=== PATIENT | female | born 1955 | race Caucasian/White ===

== ENCOUNTER 2020-10-29 17:09 | Inpatient (IN) | payer MEDICARE, MEDICAID, SELFPAY ==
[2020-10-29] VITALS (23 sets, daily range): BP systolic 102–154; BP diastolic 46–69; PULSE 65–88; RESP 16–18; TEMP 36–37.1; O2SAT 93–100; BMI 26.2
--- NOTE | ~2020-10-29 | US_ITS ---
EXAMINATION: US venous doppler UE RT DATE: 10/31/2020 17:41 INDICATION: Right arm tenderness, bruising and swelling TECHNIQUE: Grayscale images without and with compression and Doppler images of the right upper extrem ity veins were obtained. COMPARISON: None. FINDINGS: The right internal jugular vein, subclavian vein, axillary vein, brachial vein, basilic vein, cephali c vein, radial vein, and ulnar vein are patent. IMPRESSION: 1. Patent right upper extremity veins. No evidence of venous thrombosis. Reviewed, dictated and finalized at location A.
--- NOTE | ~2020-10-29 | XR_ITS ---
XR chest 2V DATE: 10/29/2020 17:37 INDICATION: Shortness of breath. TECHNIQUE: AP and lateral views COMPARISON: 10/24/2012 PA and lateral chest FINDINGS: Status post sternotomy and coronary bypass graft surgery. Cardiomegaly. Coronary artery calcifications. Aortic calcification and mild unfolding. Minimal blunting of the costophrenic angles consistent with small bilateral pleural effusions. There is pulmonary vascular congestion and redistribution. There is mild infiltrate or atelectasis in the lower lung zones. Diffuse osteopenia. IMPRESSION: Status post sternotomy/CABG Mild congestive changes Mild lateral lower lung infiltrate and/atelectasis Reviewed, dictated and finalized at location A.
--- NOTE | 2020-10-29 17:13 | PM.IMHP ---
H&P: HPI History of Present Illness Date/Time: 10/29/20 17:13 this is a 65-year-old female patient who has end-stage renal disease on dialysis Saturday. The patient stated that she is fairly new to dialysis. She stated that she had 4 treatments at [facility] in [facility] just recently and was just discharged from there on this past Saturday. The patient stated she just got the dialysis graft and right forearm and had occluded they had to get the graft open back up and has massive bruising on her right arm. The patient was supposed to go to dialysis today however she developed shortness of breath and chest pain that started at 8:00 a.m. this morning. The patient was also nauseated but did not vomit. The patient went to [facility] and [place] as that is where she lives and [place]. The patient was scheduled for dialysis today 11:00 a.m. but chose to go to [facility] instead. The patient was asleep when she developed this chest pain. She lives at [facility]. The patient also stated that she had been constipated and now her bowels opened up as she says and is been having diarrhea. She had chest pain for approximately 2 hours a did not radiate down her arm. She denied any fever chills or any cough. A chest x-ray was taken at [facility] which was suggestive of pneumonia. His head right basilar pneumonia. Patient was treated with antibiotics there at the hospital. Patient had a mildly elevated white count over 12 and pneumonia was suspected. Her potassium was within normal limits. The house piping inspector here called the choir singer Dr. Cruz who agreed to consult on the patient if she was transferred here from [facility] in [place]. [facility] attempted to transfer the patient back to [place] however they stated that no beds were available were there at this point. Patient no longer has any chest pain. Her EKG was read as a junctional rhythm with frequent PVCs. Minimal ST depression. She had mildly elevated troponin. She was given IV Lasix, cefepime, and morphine at [facility] in [place]. The patient was a direct admit from [facility] she stated that she has not had any of her medications as of yet today. The patient is chronically on oxygen at 2-3 L per nasal cannula. The patient is being admitted to observation services on the date of service of 10/29/2020. Chief Complaint: Chest pain with elevated troponin and pulmonary edema with end-stage renal disease Review of Systems Review of Systems: All systems reviewed & are unremarkable except as noted in HPI and below Constitutional: Constitutional: Reports as per HPI and Reports no additional constitutional complaints Eyes: Eyes: Reports as per HPI and Reports no additional eye complaints ENT: Reports system reviewed and no additional complaints, except as documented and Reports Normal hearing present Cardiovascular: Cardiovascular: Reports no additional cardiovascular complaints Respiratory: Respiratory: Reports no additional respiratory complaints and Reports no additional respiratory complaints Gastrointestinal: Gastrointestinal: Reports as per HPI and Reports no additional gastrointestinal complaints Musculoskeletal: Musculoskeletal: Reports no additional musculoskeletal complaints Integumentary/Breasts: Skin/Breast: Reports system reviewed and no additional complaints, except as docu and Reports as per HPI Neurologic: Reports system reviewed and no additional complaints, except as documented, Reports as per HPI and Reports Normal hearing present Psychiatric: Psychiatric: Reports no additional psychiatric complaints and Reports as per HPI Endocrine: Endocrine: Reports no additional endocrine complaints Hematologic/Lymphatic: Hematologic/Lymphatic: Reports no additional hematologic/lymphatic complaints Allergic/Immunologic: Allergic/Immunologic: Reports no additional sathish
--- NOTE | 2020-10-29 17:18 | ADMGEN ---
This patient, Irene Arellano, was admitted to IMU Room 203-01 at 1600. Patient/family oriented to hospital policies and general routines including ID bracelet, bed and alarms, visiting hours, pain management, procedures, bathroom and other care routines, personal items, smoking policy, room service/diet, and visiting hours. Information on how to activate the Rapid Response Team has been discussed. Patient/Family are encouraged to report perceived risks to care and to ask questions if they do not understand what they are told or what they should do.
[2020-10-29] MEDS: NICOTINE (*PBKC) 7 MG PATCH 1 PATCH TRANSDERM (18:29)
[2020-10-29] MEDS: CEFEPIME 1 GM in DEXTROSE 5% IN WATER 50 ML IVPB (18:30)
[2020-10-29 18:34] LABS: Prothrombin Time 23.5 Seconds (11.1-14.7)
[2020-10-29 18:36] LABS: Phosphorus 4.4 mg/dL (2.5-4.5)
[2020-10-29 19:03] LABS: Estimated CRCL calculation 17 ml/min; Estimated Glomerular Filt Rate 16
[2020-10-29 19:34] LABS: Troponin I 0.086 ng/mL (0.000-0.034)
[2020-10-29 19:42] LABS: Alanine Aminotransferase 22 U/L (4-35); Albumin Level 3.2 g/dL (3.5-5.1); Alkaline Phosphatase 117 U/L (38-126); Anion Gap 3 mmol/L (8-16); Aspartate Amino Transferase 38 U/L (14-36); Bilirubin,Total 1.2 mg/dL (0.2-1.3); Blood Urea Nitrogen 33 mg/dL (7-17); Calcium 7.9 mg/dL (8.4-10.2); Carbon Dioxide 26 mmol/L (22-30); Chloride 91 mmol/L (98-107); Estimated CRCL calculation 20 ml/min; Estimated Glomerular Filt Rate 19; Glucose 528 mg/dL (65-105); Potassium 3.9 mmol/L (3.4-5.0); Sodium 120 mmol/L (137-145)
[2020-10-29 20:15] LABS: Hematocrit 37.1 % (37.0-47.0); Hemoglobin 11.1 g/dL (12.0-15.0); Mean Corpuscular HGB Conc 29.9 g/dl (32-36); Mean Corpuscular Hemoglobin 25.8 pg (26-34); Mean Corpuscular Volume 86.3 fl (80-100); Mean Platelet Volume 12.5 fl (7.4-10.4); Platelet Count Result 182 k/mm3 (150-375); White Blood Count 6.9 K/mm3 (4.5-10.0)
[2020-10-29 20:24] LABS: Hepatitis B Surface Antigen Negative (Negative)
[2020-10-29 20:35] LABS: Glucose Point of Care 242 mg/dl (65-105)
[2020-10-30] VITALS (20 sets, daily range): BP systolic 101–157; BP diastolic 40–81; PULSE 56–80; RESP 16–21; TEMP 36.1–36.6; O2SAT 94–100
[2020-10-30 00:46] LABS: Glucose Point of Care 217 mg/dl (65-105)
[2020-10-30] MEDS: HYDROcodone/acetaminophen (*CRX) 5-325 MG TABLET 1 TAB PO (01:01)
[2020-10-30] MEDS: EZETIMIBE 10 MG TABLET PO ×2 (01:01→21:39)
[2020-10-30] MEDS: ATORVASTATIN 40 MG TABLET PO (01:02)
[2020-10-30] MEDS: WARFARIN (*PBKC) 2 MG TABLET PO ×2 (01:02→21:39)
[2020-10-30] MEDS: METOPROLOL TARTRATE 25 MG TABLET PO ×3 (01:02→16:57)
[2020-10-30] MEDS: INSULIN GLARGINE (*BKC) 100 UNITS/ML 42 UNITS SUB-Q ×2 (01:03→21:45)
[2020-10-30] MEDS: BRIMONIDINE TARTRATE 0.2% OP SOLN 5 ML BTL 1 DROP EACH EYE ×2 (01:08→08:12)
[2020-10-30] MEDS: TIMOLOL MALEATE 0.5% OP SOLN 5 ML BOTTLE 1 DROP EACH EYE ×2 (01:09→08:12)
[2020-10-30] MEDS: PREGABALIN (*CRX) 50 MG CAPSULE 100 MG PO ×2 (01:16→21:39)
[2020-10-30] MEDS: CEFEPIME 1 GM in DEXTROSE 5% IN WATER 50 ML IVPB ×3 (03:32→18:23)
[2020-10-30 05:36] LABS: Basophils Percent Auto 0.5 % (0.2-1.2); Eosinophils Absolute Auto 0.1 K/mm3 (0-0.3); Eosinophils Percent Auto 1.4 % (0-4.4); Hematocrit 34.1 % (37.0-47.0); Hemoglobin 10.3 g/dL (12.0-15.0); Immature Granulocyte Absolute 0.02 K/mm3 (0.00-0.031); Immature Granulocyte Percent A 0.3 % (0-0.5); Lymphocytes Absolute Auto 0.92 K/mm3 (0.9-3.2); Lymphocytes Percent Auto 11.6 % (18.3-44.2); Mean Corpuscular HGB Conc 30.2 g/dl (32-36); Mean Corpuscular Hemoglobin 25.9 pg (26-34); Mean Corpuscular Volume 85.9 fl (80-100); Mean Platelet Volume 12.7 fl (7.4-10.4); Monocytes Absolute Auto 0.7 K/mm3 (0.1-0.6); Monocytes Percent Auto 9.2 % (2.6-8.5); Neutrophils Absolute Auto 6.1 K/mm3 (1.3-6.7); Platelet Count Result 163 k/mm3 (150-375); Red Blood Count 3.97 M/mm3 (4.2-5.4); Red Cell Distribution Width 17.7 % (11.5-14.5); White Blood Count 7.9 K/mm3 (4.5-10.0)
[2020-10-30 05:46] LABS: INR 2.1; Prothrombin Time 24.4 Seconds (11.1-14.7)
[2020-10-30 06:04] LABS: Alanine Aminotransferase 23 U/L (4-35); Albumin Level 3.1 g/dL (3.5-5.1); Alkaline Phosphatase 131 U/L (38-126); Anion Gap 7 mmol/L (8-16); Aspartate Amino Transferase 36 U/L (14-36); Bilirubin,Total 0.8 mg/dL (0.2-1.3); Blood Urea Nitrogen 21 mg/dL (7-17); Calcium 8.5 mg/dL (8.4-10.2); Carbon Dioxide 33 mmol/L (22-30); Chloride 95 mmol/L (98-107); Estimated CRCL calculation 23 ml/min; Estimated Glomerular Filt Rate 22; Glucose 314 mg/dL (65-105); Magnesium 1.9 mg/dL (1.6-2.3); Potassium 4.3 mmol/L (3.4-5.0); Sodium 135 mmol/L (137-145)
--- NOTE | 2020-10-30 08:08 | ECG_ITS ---
Measurements Intervals [place] Rate: 71 P: 104 OR: 215 QRS: -31 QRSD: 111 T: 90 QT: 424 QTc: 464 Interpretive Statements SINUS RHYTHM WITH FIRST DEGREE AV BLOCK VENTRICULAR PREMATURE COMPLEXES LEFT AXIS DEVIATION INCOMPLETE RIGHT BUNDLE BRANCH BLOCK DELAYED PRECORDIAL R/S TRANSITION BORDERLINE ST-T WAVE ABNORMALITY- DIFFUSE LEADS BASELINE ARTIFACT- I, III, AVR, AVL, AVF, V1, V3 ABNORMAL ECG Electronically Signed On 10-30-2020 15:14:47 CDT by Raul Blanco D.O.
[2020-10-30] MEDS: FUROSEMIDE 80 MG TABLET 240 MG PO ×2 (08:11→16:56)
[2020-10-30] MEDS: INSULIN ASPART (*BKC) 100 UNITS/ML SUB-Q ×3 (08:12→13:08)
[2020-10-30] MEDS: AMIODARONE HCL 200 MG TABLET PO (08:12)
[2020-10-30] MEDS: NICOTINE (*PBKC) 7 MG PATCH 1 PATCH TRANSDERM (08:12)
[2020-10-30] MEDS: ASPIRIN 81 MG CHEWABLE TABLET PO (08:12)
[2020-10-30] MEDS: allopurinoL 50 MG TABLET PO (08:12)
[2020-10-30] MEDS: CHOLECALCIFEROL 1,000 UNITS TABLET 5000 UNITS PO (08:16)
[2020-10-30 08:45] LABS: Glucose Point of Care 358 mg/dl (65-105)
--- NOTE | 2020-10-30 11:22 | PM.IMPN ---
Progress Note: A&P Assessment and Plan (1) End stage renal disease on dialysis: Code(s): N18.6 - End stage renal disease; Z99.2 - Dependence on renal dialysis Status: Chronic Assessment and Plan: She recently started on hemodialysis 2 weeks ago. Her shipper and receiving is Dr. Spears at [place]. Dialysis schedule Sat//Sat. She was supposed to have dialysis yesterday at [facility] but she presented to the ED and [place] instead due to shortness of breath and chest pain. She was unable to transfer to [facility] last night due to no available beds; was transferred here for hemodialysis capability. She was dialyzed last night and her symptoms are improved. She remains on large doses of Lasix prescribed by her shipper and receiving. Monitor renal function. Making some urine still. (2) Pneumonia: Qualifiers: Pneumonia type: due to unspecified organism Laterality: unspecified laterality Lung location: unspecified part of lung Qualified Code(s): J18.9 - Pneumonia, unspecified organism Code(s): J18.9 - Pneumonia, unspecified organism Status: Acute Assessment and Plan: Mild infiltrate and atelectasis on CXR with a cough and shortness of breath, mild leukocytosis. Was started on IV antibiotics for possible pneumonia. Continue cefepime (multiple drug allergies). Add albuterol as needed, mucinex. (3) COPD (chronic obstructive pulmonary disease): Qualifiers: COPD type: unspecified COPD Qualified Code(s): J44.9 - Chronic obstructive pulmonary disease, unspecified Code(s): J44.9 - Chronic obstructive pulmonary disease, unspecified Status: Chronic Assessment and Plan: Continue with her home Symbicort. No respiratory distress. (4) DM2 (diabetes mellitus, type 2): Qualifiers: Diabetes mellitus terminal gauger insulin use: with custodial use Diabetes mellitus complication status: without complication Qualified Code(s): E11.9 - Type 2 diabetes mellitus without complications; Z79.4 - rat exterminator (current) use of insulin Code(s): E11.9 - Type 2 diabetes mellitus without complications Status: Chronic Assessment and Plan: Check A1c in AM. Continue Lantus. Blood sugars elevated this morning, increased SSI to high-dose corrective. Continue to monitor with Accu-Cheks and adjust treatment as needed. (5) Atrial flutter: Qualifiers: Atrial flutter type: unspecified Qualified Code(s): I48.92 - Unspecified atrial flutter Code(s): I48.92 - Unspecified atrial flutter Status: Chronic Assessment and Plan: History of chronic atrial flutter. Rate controlled on home amiodarone, metoprolol. On long-term anticoagulation with warfarin. INR 2.1 today. Monitor INR daily. (6) Hyperlipidemia: Qualifiers: Hyperlipidemia type: unspecified Qualified Code(s): E78.5 - Hyperlipidemia, unspecified Code(s): E78.5 - Hyperlipidemia, unspecified Status: Chronic Assessment and Plan: Continue home statin therapy. (7) Chronic respiratory failure with hypoxia: Code(s): J96.11 - Chronic respiratory failure with hypoxia Status: Chronic Assessment and Plan: She is tolerating her home oxygen requirement at 2 L/min no respiratory distress. (8) Hypertension: Qualifiers: Hypertension type: essential hypertension Qualified Code(s): I10 - Essential (primary) hypertension Code(s): I10 - Essential (primary) hypertension Status: Chronic Assessment and Plan: Blood pressures reviewed; variable, on lower end this afternoon maintained on home regimen with metoprolol. Monitor B
[2020-10-30 12:49] LABS: Glucose Point of Care 288 mg/dl (65-105)
[2020-10-30 12:59] LABS: Anion Gap 8 mmol/L (8-16); Blood Urea Nitrogen 29 mg/dL (7-17); Calcium 8.5 mg/dL (8.4-10.2); Carbon Dioxide 29 mmol/L (22-30); Chloride 97 mmol/L (98-107); Estimated CRCL calculation 23 ml/min; Estimated Glomerular Filt Rate 22; Glucose 286 mg/dL (65-105); Potassium 4.3 mmol/L (3.4-5.0); Sodium 134 mmol/L (137-145)
--- NOTE | 2020-10-30 15:58 | PC.NURSE ---
This patient, Irene Arellano, was transferred to [ [facility] 2 med] on 10/30/20 at 1520. Personal belongings sent with patient. Report given to [rn ]. Appropriate documentation sent with patient.
--- NOTE | 2020-10-30 16:03 | P.CONNP_ITS ---
Assessment and Plan Assessment and plan (1) End stage renal disease: Code(s): N18.6 - End stage renal disease Status: Chronic Assessment and Plan: * HD yesterday and contine T/T/S schedule while hospitalized * follow electrolytes, volume status, and clearance (2) Volume overload: Code(s): E87.70 - Fluid overload, unspecified Status: Acute Assessment and Plan: * improved following dialysis yesterday evening * however, still with evidence of edema/swelling * plan DUF (dry ultrafiltration) tomorrow for further fluid removal (3) Pneumonia: Qualifiers: Laterality: unspecified laterality Lung location: unspecified part of lung Pneumonia type: due to unspecified organism Qualified Code(s): J18.9 - Pneumonia, unspecified organism Code(s): J18.9 - Pneumonia, unspecified organism Status: Acute Assessment and Plan: * suspicion by admission imaging * empirically on antibiotics * follow cultures (4) Chronic respiratory failure with hypoxia: Code(s): J96.11 - Chronic respiratory failure with hypoxia Status: Chronic Assessment and Plan: * on chronic home oxygen * continue supportive therapy (5) Hypertension: Qualifiers: Hypertension type: essential hypertension Qualified Code(s): I10 - Essential (primary) hypertension Code(s): I10 - Essential (primary) hypertension Status: Chronic Assessment and Plan: * reasonable control * suspect ultrafiltration helped improve as well * follow trend of hemodynamics (6) DM2 (diabetes mellitus, type 2): Qualifiers: Diabetes mellitus complication status: without complication Diabetes mellitus prison insulin use: with local company intermodal truck driver use Qualified Code(s): E11.9 - Type 2 diabetes mellitus without complications; Z79.4 - alf (current) use of insulin Code(s): E11.9 - Type 2 diabetes mellitus without complications Status: Chronic Assessment and Plan: * follow accuchecks -- appears to have brittle control * glycemic control Thank you for allowing me to participate in the care of this patient. I will continue to follow her with you and make further recommendations during her hospital course. History of Present Illness Reason for Consult Consult date: 10/30/20 Reason for consult: end stage renal disease Chief Complaint Chief complaint: Fluid Overload, ESRD History of Present Illness Narrative: The patient is a 65-year-old female patient with an extensive past medical history as outlined below who was transferred to [facility] from [facility] for further evaluation of her shortness of breath and chest pain. On the day of admission, the patient developed acute shortness of breath and chest pain earlier in the morning. She also had issues with nausea but no emesis. She was scheduled to go to her outpatient dialysis unit on that day but given the symptoms, her caregiver to occurred to [facility] in [place] for further evaluation. On further questioning. The patient reportedly was asleep when she developed the chest pain and apparently lasted for around 2 hours with no other associated symptoms other than shortness of breath. She had no reported fevers chills or cough. Workup and evaluation emergency room at [facility] demonstrated labs consistent with her known history of end-stage renal disease, a chest x-ray that was somewhat suggestive of pneumonia, and a CBC with a mildly elevated white blood cell count. Her c
--- NOTE | 2020-10-30 16:03 | PM.CNNEP ---
Assessment and Plan Assessment and plan (1) End stage renal disease: Code(s): N18.6 - End stage renal disease Status: Chronic Assessment and Plan: HD yesterday and contine T/T/S schedule while hospitalized follow electrolytes, volume status, and clearance (2) Volume overload: Code(s): E87.70 - Fluid overload, unspecified Status: Acute Assessment and Plan: improved following dialysis yesterday evening however, still with evidence of edema/swelling plan DUF (dry ultrafiltration) tomorrow for further fluid removal (3) Pneumonia: Qualifiers: Laterality: unspecified laterality Lung location: unspecified part of lung Pneumonia type: due to unspecified organism Qualified Code(s): J18.9 - Pneumonia, unspecified organism Code(s): J18.9 - Pneumonia, unspecified organism Status: Acute Assessment and Plan: suspicion by admission imaging empirically on antibiotics follow cultures (4) Chronic respiratory failure with hypoxia: Code(s): J96.11 - Chronic respiratory failure with hypoxia Status: Chronic Assessment and Plan: on chronic home oxygen continue supportive therapy (5) Hypertension: Qualifiers: Hypertension type: essential hypertension Qualified Code(s): I10 - Essential (primary) hypertension Code(s): I10 - Essential (primary) hypertension Status: Chronic Assessment and Plan: reasonable control suspect ultrafiltration helped improve as well follow trend of hemodynamics (6) DM2 (diabetes mellitus, type 2): Qualifiers: Diabetes mellitus complication status: without complication Diabetes mellitus technician terminal and repeater insulin use: with technician terminal and repeater use Qualified Code(s): E11.9 - Type 2 diabetes mellitus without complications; Z79.4 - buttermilk drier operator (current) use of insulin Code(s): E11.9 - Type 2 diabetes mellitus without complications Status: Chronic Assessment and Plan: follow accuchecks -- appears to have brittle control glycemic control Thank you for allowing me to participate in the care of this patient. I will continue to follow her with you and make further recommendations during her hospital course. History of Present Illness Reason for Consult Consult date: 10/30/20 Reason for consult: end stage renal disease Chief Complaint Chief complaint: Fluid Overload, ESRD History of Present Illness Narrative: The patient is a 65-year-old female patient with an extensive past medical history as outlined below who was transferred to [facility] from [facility] for further evaluation of her shortness of breath and chest pain. On the day of admission, the patient developed acute shortness of breath and chest pain earlier in the morning. She also had issues with nausea but no emesis. She was scheduled to go to her outpatient dialysis unit on that day but given the symptoms, her caregiver to occurred to in [place] for further evaluation. On further questioning. The patient reportedly was asleep when she developed the chest pain and apparently lasted for around 2 hours with no other associated symptoms other than shortness of breath. She had no reported fevers chills or cough. Workup and evaluation emergency room at [facility] demonstrated labs consistent with her known history of end-stage renal disease, a chest x-ray that was somewhat suggestive of pneumonia, and a CBC with a mildly elevated white blood cell count. Her chemistry results did not show any critical electrolyte abnormalities aside from the elevated BUN and creatinine consistent with her history of end-stage renal disease. her chest x-ray also demonstrated evidence of pulmonary vascular congestion / mild overload as well. Given these constellation of symptoms, she was given a combination of IV Lasix, antibiotics, and morphine. As
[2020-10-30] MEDS: POTASSIUM CHLORIDE 20 MEQ TABLET.ER PO (16:56)
[2020-10-30 17:39] LABS: Glucose Point of Care 78 mg/dl (65-105)
[2020-10-30 20:18] LABS: Glucose Point of Care 188 mg/dl (65-105)
[2020-10-30] MEDS: BUDESONIDE/FORMOTEROL 80/4.5 MCG 6.9 GM INHALER (*SP) 2 PUFF INHALATION (20:33)
[2020-10-30] MEDS: guaiFENesin 12 HR 600 MG TABCR PO (21:39)
[2020-10-31] VITALS (26 sets, daily range): BP systolic 97–152; BP diastolic 36–85; PULSE 55–70; RESP 18–21; TEMP 36.1–37; O2SAT 96–100
[2020-10-31] MEDS: CEFEPIME 1 GM in DEXTROSE 5% IN WATER 50 ML IVPB (03:17)
[2020-10-31 07:52] LABS: Glucose Point of Care 335 mg/dl (65-105)
[2020-10-31] MEDS: INSULIN ASPART (*BKC) 100 UNITS/ML SUB-Q (08:08)
--- NOTE | 2020-10-31 08:20 | PC.NURSE ---
Patient to dialysis per bed. Report given. All questions answered.
--- NOTE | 2020-10-31 08:42 | PCPTNOTE ---
Attempted PT eval. Pt in dialysis. Will try again at later time.
[2020-10-31 09:07] LABS: Hematocrit 36.1 % (37.0-47.0); Hemoglobin 10.9 g/dL (12.0-15.0)
[2020-10-31 09:17] LABS: INR 1.9; Prothrombin Time 22.7 Seconds (11.1-14.7)
[2020-10-31 09:21] LABS: Albumin Level 3.3 g/dL (3.5-5.1); Anion Gap 10 mmol/L (8-16); Blood Urea Nitrogen 37 mg/dL (7-17); Calcium 8.6 mg/dL (8.4-10.2); Carbon Dioxide 27 mmol/L (22-30); Chloride 95 mmol/L (98-107); Estimated CRCL calculation 18 ml/min; Estimated Glomerular Filt Rate 17; Glucose 404 mg/dL (65-105); Magnesium 1.8 mg/dL (1.6-2.3); Potassium 4.3 mmol/L (3.4-5.0); Sodium 132 mmol/L (137-145)
--- NOTE | 2020-10-31 10:01 | P.PNNP_ITS ---
Progress Note: A&P Assessment and Plan (1) End stage renal disease: Code(s): N18.6 - End stage renal disease Status: Chronic Assessment and Plan: * HD tomorrow and continue T/T/S schedule while hospitalized * follow electrolytes, volume status, and clearance (2) Volume overload: Code(s): E87.70 - Fluid overload, unspecified Status: Acute Assessment and Plan: * improved following dialysis yesterday evening * however, still with evidence of edema/swelling * DUF (dry ultrafiltration) today for further fluid removal (3) Pneumonia: Qualifiers: Pneumonia type: due to unspecified organism Laterality: unspecified laterality Lung location: unspecified part of lung Qualified Code(s): J18.9 - Pneumonia, unspecified organism Code(s): J18.9 - Pneumonia, unspecified organism Status: Acute Assessment and Plan: * suspicion by admission imaging * empirically on antibiotics * follow cultures (4) Chronic respiratory failure with hypoxia: Code(s): J96.11 - Chronic respiratory failure with hypoxia Status: Chronic Assessment and Plan: * on chronic home oxygen * due to COPD and ongoing smoking * continue supportive therapy (5) Hypertension: Qualifiers: Hypertension type: essential hypertension Qualified Code(s): I10 - Essential (primary) hypertension Code(s): I10 - Essential (primary) hypertension Status: Chronic Assessment and Plan: * reasonable control * suspect ultrafiltration helped improve as well * follow trend of hemodynamics (6) DM2 (diabetes mellitus, type 2): Qualifiers: Diabetes mellitus termite exterminator helper insulin use: with senior living use Diabetes mellitus complication status: without complication Qualified Code(s): E11.9 - Type 2 diabetes mellitus without complications; Z79.4 - termite exterminator helper (current) use of insulin Code(s): E11.9 - Type 2 diabetes mellitus without complications Status: Chronic Assessment and Plan: * follow accuchecks -- appears to have brittle control * on Lantus and SSI Will continue to follow Subjective Date/time seen: 10/31/20 10:01 Tolerating dry ultrafiltration treatment at the time of my visit (seen at 9:50AM); no apparent issues or concerns voiced at this time; overall, feels reasonably well; hoping for possible discharge later today; no events/issues overnight or earlier this AM. Exam Narrative: Exam Narrative: General: WD/WN female in NAD Heart: normal S1 and S2; no rub Lungs: decreased breath sounds at bases Abdomen: soft, nontender, nondistended, positive bowel sounds Extremities: no cyanosis or clubbing; 1+ edema Skin: warm and dry Objective Data Vital Signs Vital Signs: Vital Signs Temp Pulse Resp BP Pulse Ox 10/31/20 09:45 64 119/58 L 10/31/20 09:30 61 116/85 10/31/20 09:15 69 122/58 L 10/31/20 09:00 70 120/53 L 10/31/20 08:45 70 131/70 10/31/20 08:30 36.8 C 68 18 131/58 L 10/31/20 04:00 36.4 C 55 L 21 H 104/43 L 100 10/31/20 00:00 36.6 C 57 L 21 H 106/47 L 100 10/30/20 22:00 36.1 C L 59 L 21 H 110/50 L 100 10/30/20 21:30 100 10/30/20 20:39 70 18 10/30/20 16:00 36.6 C 56 L 18 105/53 L 94 10/30/20 12:00 36.5 C 63 18 101/40 L 98 Intake/Output Intake/O
--- NOTE | 2020-10-31 10:01 | PM.PNNEP ---
Progress Note: A&P Assessment and Plan (1) End stage renal disease: Code(s): N18.6 - End stage renal disease Status: Chronic Assessment and Plan: HD tomorrow and continue T/T/S schedule while hospitalized follow electrolytes, volume status, and clearance (2) Volume overload: Code(s): E87.70 - Fluid overload, unspecified Status: Acute Assessment and Plan: improved following dialysis yesterday evening however, still with evidence of edema/swelling DUF (dry ultrafiltration) today for further fluid removal (3) Pneumonia: Qualifiers: Pneumonia type: due to unspecified organism Laterality: unspecified laterality Lung location: unspecified part of lung Qualified Code(s): J18.9 - Pneumonia, unspecified organism Code(s): J18.9 - Pneumonia, unspecified organism Status: Acute Assessment and Plan: suspicion by admission imaging empirically on antibiotics follow cultures (4) Chronic respiratory failure with hypoxia: Code(s): J96.11 - Chronic respiratory failure with hypoxia Status: Chronic Assessment and Plan: on chronic home oxygen due to COPD and ongoing smoking continue supportive therapy (5) Hypertension: Qualifiers: Hypertension type: essential hypertension Qualified Code(s): I10 - Essential (primary) hypertension Code(s): I10 - Essential (primary) hypertension Status: Chronic Assessment and Plan: reasonable control suspect ultrafiltration helped improve as well follow trend of hemodynamics (6) DM2 (diabetes mellitus, type 2): Qualifiers: Diabetes mellitus intermediate insulin use: with magistrate use Diabetes mellitus complication status: without complication Qualified Code(s): E11.9 - Type 2 diabetes mellitus without complications; Z79.4 - FPC (current) use of insulin Code(s): E11.9 - Type 2 diabetes mellitus without complications Status: Chronic Assessment and Plan: follow accuchecks -- appears to have brittle control on Lantus and SSI Will continue to follow Subjective Date/time seen: 10/31/20 10:01 Tolerating dry ultrafiltration treatment at the time of my visit (seen at 9:50AM); no apparent issues or concerns voiced at this time; overall, feels reasonably well; hoping for possible discharge later today; no events/issues overnight or earlier this AM. Exam Narrative: Exam Narrative: General: WD/WN female in NAD Heart: normal S1 and S2; no rub Lungs: decreased breath sounds at bases Abdomen: soft, nontender, nondistended, positive bowel sounds Extremities: no cyanosis or clubbing; 1+ edema Skin: warm and dry Objective Data Vital Signs Vital Signs: Vital Signs Temp Pulse Resp BP Pulse Ox 10/31/20 09:45 64 119/58 L 10/31/20 09:30 61 116/85 10/31/20 09:15 69 122/58 L 10/31/20 09:00 70 120/53 L 10/31/20 08:45 70 131/70 10/31/20 08:30 36.8 C 68 18 131/58 L 10/31/20 04:00 36.4 C 55 L 21 H 104/43 L 100 10/31/20 00:00 36.6 C 57 L 21 H 106/47 L 100 10/30/20 22:00 36.1 C L 59 L 21 H 110/50 L 100 10/30/20 21:30 100 10/30/20 20:39 70 18 10/30/20 16:00 36.6 C 56 L 18 105/53 L 94 10/30/20 12:00 36.5 C 63 18 101/40 L 98 Intake/Output Intake/Output: Intake & Output 10/28/20 10/29/20 10/30/20 10/31/20 23:59 23:59 23:59 23:59 Intake Total 150 1390 790 Output Total 3400 500 100 Balance -3250 890 690 Meds/Results Medications: Active Medications Generic Name Dose Route Start Last Admin Trade Name Freq PRN Reason Stop Dose Admin Acetaminophen 650 mg 10/29/20 17:08 Acetaminophen 325 Mg Tablet PO Q4H PRN Mild Pain (1-3) or Fever Hydrocodone Bitart/Acetaminophen 1 tab 10/29/20 23:08 10/30/20 01:01 Hydrocodone/Acetaminophen (*Crx) 5-325 Mg Tablet PO 1 tab Q4H PRN Administration Pain Rated 7-10 Albuterol 2.5
[2020-10-31] MEDS: NICOTINE (*PBKC) 7 MG PATCH 1 PATCH TRANSDERM (12:37)
[2020-10-31] MEDS: allopurinoL 50 MG TABLET PO (12:38)
[2020-10-31] MEDS: POTASSIUM CHLORIDE 20 MEQ TABLET.ER PO ×2 (12:38→17:20)
[2020-10-31] MEDS: BRIMONIDINE TARTRATE 0.2% OP SOLN 5 ML BTL 1 DROP EACH EYE ×2 (12:38→21:18)
[2020-10-31] MEDS: CHOLECALCIFEROL 1,000 UNITS TABLET 5000 UNITS PO (12:38)
[2020-10-31] MEDS: TIMOLOL MALEATE 0.5% OP SOLN 5 ML BOTTLE 1 DROP EACH EYE ×2 (12:38→21:18)
[2020-10-31] MEDS: FUROSEMIDE 80 MG TABLET 240 MG PO (12:39)
[2020-10-31] MEDS: calcitrioL 0.25 MCG CAPSULE PO (12:39)
[2020-10-31] MEDS: guaiFENesin 12 HR 600 MG TABCR PO ×2 (12:39→21:17)
[2020-10-31] MEDS: METOPROLOL TARTRATE 25 MG TABLET PO (12:39)
[2020-10-31] MEDS: AMIODARONE HCL 200 MG TABLET PO (12:40)
[2020-10-31] MEDS: BUDESONIDE/FORMOTEROL 80/4.5 MCG 6.9 GM INHALER (*SP) 2 PUFF INHALATION ×2 (12:40→21:18)
[2020-10-31 12:51] LABS: Glucose Point of Care 424 mg/dl (65-105)
--- NOTE | 2020-10-31 12:53 | P.PNIM_ITS ---
Progress Note: A&P Assessment and Plan (1) End stage renal disease on dialysis: Code(s): N18.6 - End stage renal disease; Z99.2 - Dependence on renal dialysis Status: Chronic Assessment and Plan: * She recently started on hemodialysis 2 weeks ago. Her rotary drill operator is Dr. Spears at [place]. * Dialysis schedule Sat//Sat. She was supposed to have dialysis 10/29 at [place] but she presented to the ED at [facility] due to shortness of breath and chest pain. She was unable to transfer to [facility] last night due to no available beds; was transferred here for hemodialysis capability. She was dialyzed on 10/30 and 10/31 and her symptoms are improved. She remains on large doses of Lasix prescribed by her rotary drill operator. * Monitor renal function. Making some urine still. (2) Pneumonia: Qualifiers: Pneumonia type: due to unspecified organism Laterality: unspecified laterality Lung location: unspecified part of lung Qualified Code(s): J18.9 - Pneumonia, unspecified organism Code(s): J18.9 - Pneumonia, unspecified organism Status: Acute Assessment and Plan: * Mild infiltrate and atelectasis on CXR with a cough and shortness of breath, mild leukocytosis which has resolved. Was started on IV antibiotics for possible pneumonia with symptomatic improvement * Will transition to p.o. doxycycline and cefdinir. Albuterol as needed, mucinex, incentive spirometry. (3) COPD (chronic obstructive pulmonary disease): Qualifiers: COPD type: unspecified COPD Qualified Code(s): J44.9 - Chronic obstructive pulmonary disease, unspecified Code(s): J44.9 - Chronic obstructive pulmonary disease, unspecified Status: Chronic Assessment and Plan: * Continue with her home Symbicort. No respiratory distress. (4) DM2 (diabetes mellitus, type 2): Qualifiers: Diabetes mellitus joint terminal attack controller insulin use: with longterm use Diabetes mellitus complication status: without complication Qualified Code(s): E11.9 - Type 2 diabetes mellitus without complications; Z79.4 - assisted (current) use of insulin Code(s): E11.9 - Type 2 diabetes mellitus without complications Status: Chronic Assessment and Plan: * Blood sugars elevated in the 400s today. She only received 10 units of Lantus last night instead of her scheduled 42 units which explains hyperglycemia. Discussed importance of taking prescribed Lantus appropriately every night. Administer 10 units NovoLog at this time and monitor blood sugars. * A1c is pending. * Continue high-dose sliding scale insulin. (5) Atrial flutter: Qualifiers: Atrial flutter type: unspecified Qualified Code(s): I48.92 - Unspecified atrial flutter Code(s): I48.92 - Unspecified atrial flutter Status: Chronic Assessment and Plan: * History of chronic atrial flutter. Rate controlled on home amiodarone, metoprolol. On long-term anticoagulation with warfarin. * INR 1.9 today. Monitor INR daily. (6) Chronic respiratory failure with hypoxia: Code(s): J96.11 - Chronic respiratory failure with hypoxia Status: Chronic Assessment and Plan: * She is tolerating her home oxygen requirement at 2 L/min no respiratory dis tress. (7) Hypertension: Qualifiers: Hypertension type: essential hypertensi
--- NOTE | 2020-10-31 12:53 | PM.IMPN ---
Progress Note: A&P Assessment and Plan (1) End stage renal disease on dialysis: Code(s): N18.6 - End stage renal disease; Z99.2 - Dependence on renal dialysis Status: Chronic Assessment and Plan: She recently started on hemodialysis 2 weeks ago. Her soils engineer is Dr. Spears at [place]. Dialysis schedule Sat//Sat. She was supposed to have dialysis 10/29 at [place] but she presented to the ED at [facility] due to shortness of breath and chest pain. She was unable to transfer to [facility] last night due to no available beds; was transferred here for hemodialysis capability. She was dialyzed on 10/30 and 10/31 and her symptoms are improved. She remains on large doses of Lasix prescribed by her soils engineer. Monitor renal function. Making some urine still. (2) Pneumonia: Qualifiers: Pneumonia type: due to unspecified organism Laterality: unspecified laterality Lung location: unspecified part of lung Qualified Code(s): J18.9 - Pneumonia, unspecified organism Code(s): J18.9 - Pneumonia, unspecified organism Status: Acute Assessment and Plan: Mild infiltrate and atelectasis on CXR with a cough and shortness of breath, mild leukocytosis which has resolved. Was started on IV antibiotics for possible pneumonia with symptomatic improvement Will transition to p.o. doxycycline and cefdinir. Albuterol as needed, mucinex, incentive spirometry. (3) COPD (chronic obstructive pulmonary disease): Qualifiers: COPD type: unspecified COPD Qualified Code(s): J44.9 - Chronic obstructive pulmonary disease, unspecified Code(s): J44.9 - Chronic obstructive pulmonary disease, unspecified Status: Chronic Assessment and Plan: Continue with her home Symbicort. No respiratory distress. (4) DM2 (diabetes mellitus, type 2): Qualifiers: Diabetes mellitus ad terminal makeup operator insulin use: with ad terminal makeup operator use Diabetes mellitus complication status: without complication Qualified Code(s): E11.9 - Type 2 diabetes mellitus without complications; Z79.4 - longterm (current) use of insulin Code(s): E11.9 - Type 2 diabetes mellitus without complications Status: Chronic Assessment and Plan: Blood sugars elevated in the 400s today. She only received 10 units of Lantus last night instead of her scheduled 42 units which explains hyperglycemia. Discussed importance of taking prescribed Lantus appropriately every night. Administer 10 units NovoLog at this time and monitor blood sugars. A1c is pending. Continue high-dose sliding scale insulin. (5) Atrial flutter: Qualifiers: Atrial flutter type: unspecified Qualified Code(s): I48.92 - Unspecified atrial flutter Code(s): I48.92 - Unspecified atrial flutter Status: Chronic Assessment and Plan: History of chronic atrial flutter. Rate controlled on home amiodarone, metoprolol. On long-term anticoagulation with warfarin. INR 1.9 today. Monitor INR daily. (6) Chronic respiratory failure with hypoxia: Code(s): J96.11 - Chronic respiratory failure with hypoxia Status: Chronic Assessment and Plan: She is tolerating her home oxygen requirement at 2 L/min no respiratory distress. (7) Hypertension: Qualifiers: Hypertension type: essential hypertension Qualified Code(s): I10 - Essential (primary) hypertension Code(s): I10 - Essential (primary) hypertension Status: Chronic Assessment and Plan: Blood pressures reviewed and are generally stable maintained on home regimen with metoprolol. Monitor BP and adjust treatment as needed. 8)
[2020-10-31] MEDS: INSULIN ASPART (*BKC) 100 UNITS/ML 10 UNITS SUB-Q (13:02)
[2020-10-31 13:37] LABS: Hemoglobin A1C 9.8 % (<5.7)
[2020-10-31] MEDS: ASPIRIN 81 MG CHEWABLE TABLET PO (13:45)
[2020-10-31 14:09] LABS: Glucose Point of Care 439 mg/dl (65-105)
[2020-10-31] MEDS: HYDROcodone/acetaminophen (*CRX) 5-325 MG TABLET 1 TAB PO (15:04)
[2020-10-31 16:46] LABS: Glucose Point of Care 468 mg/dl (65-105)
[2020-10-31] MEDS: INSULIN ASPART (*BKC) 100 UNITS/ML 14 UNITS SUB-Q (17:18)
[2020-10-31 18:32] LABS: Glucose Point of Care 471 mg/dl (65-105)
[2020-10-31] MEDS: INSULIN GLARGINE (*BKC) 100 UNITS/ML 42 UNITS SUB-Q (18:55)
[2020-10-31] MEDS: ATORVASTATIN 40 MG TABLET PO (21:17)
[2020-10-31] MEDS: PREGABALIN (*CRX) 50 MG CAPSULE 100 MG PO (21:17)
[2020-10-31] MEDS: CEFDINIR 300 MG CAPSULE PO (21:17)
[2020-10-31] MEDS: DOXYCYCLINE HYCLATE 100 MG TABLET PO (21:17)
[2020-10-31] MEDS: WARFARIN (*PBKC) 3 MG TABLET PO (21:18)
[2020-10-31] MEDS: EZETIMIBE 10 MG TABLET PO (21:21)
[2020-10-31 21:49] LABS: Glucose Point of Care 332 mg/dl (65-105)
[2020-11-01] VITALS (10 sets, daily range): BP systolic 101–126; BP diastolic 39–48; PULSE 50–70; RESP 16–21; TEMP 36.1–36.6; O2SAT 56–100
[2020-11-01 08:11] LABS: Glucose Point of Care 498 mg/dl (65-105)
[2020-11-01] MEDS: INSULIN ASPART (*BKC) 100 UNITS/ML 15 UNITS SUB-Q ×2 (08:16→11:15)
[2020-11-01] MEDS: allopurinoL 50 MG TABLET PO (08:20)
[2020-11-01] MEDS: CHOLECALCIFEROL 1,000 UNITS TABLET 5000 UNITS PO (08:20)
[2020-11-01] MEDS: POTASSIUM CHLORIDE 20 MEQ TABLET.ER PO (08:20)
[2020-11-01] MEDS: BUDESONIDE/FORMOTEROL 80/4.5 MCG 6.9 GM INHALER (*SP) 2 PUFF INHALATION ×2 (08:20→20:57)
[2020-11-01] MEDS: TIMOLOL MALEATE 0.5% OP SOLN 5 ML BOTTLE 1 DROP EACH EYE (08:21)
[2020-11-01] MEDS: FUROSEMIDE 80 MG TABLET 240 MG PO (08:21)
[2020-11-01] MEDS: DOXYCYCLINE HYCLATE 100 MG TABLET PO ×2 (08:21→20:56)
[2020-11-01] MEDS: CEFDINIR 300 MG CAPSULE PO ×2 (08:21→20:56)
[2020-11-01] MEDS: guaiFENesin 12 HR 600 MG TABCR PO (08:21)
[2020-11-01] MEDS: ASPIRIN 81 MG CHEWABLE TABLET PO (08:21)
[2020-11-01] MEDS: NICOTINE (*PBKC) 7 MG PATCH 1 PATCH TRANSDERM (08:21)
[2020-11-01] MEDS: BRIMONIDINE TARTRATE 0.2% OP SOLN 5 ML BTL 1 DROP EACH EYE (08:22)
[2020-11-01] MEDS: HYDROcodone/acetaminophen (*CRX) 5-325 MG TABLET 1 TAB PO ×2 (08:50→18:19)
[2020-11-01] MEDS: AMIODARONE HCL 200 MG TABLET PO (08:51)
[2020-11-01] MEDS: INSULIN GLARGINE (*BKC) 100 UNITS/ML 20 UNITS SUB-Q ×2 (09:01→21:02)
[2020-11-01 09:10] LABS: Glucose Point of Care > 500 mg/dl (65-105)
[2020-11-01 09:25] LABS: Hematocrit 35.9 % (37.0-47.0); Hemoglobin 10.8 g/dL (12.0-15.0)
--- NOTE | 2020-11-01 09:30 | PC.NURSE ---
Patient to dialysis per bed.
[2020-11-01 09:44] LABS: Anion Gap 13 mmol/L (8-16); Blood Urea Nitrogen 50 mg/dL (7-17); Calcium 8.5 mg/dL (8.4-10.2); Carbon Dioxide 24 mmol/L (22-30); Chloride 92 mmol/L (98-107); Estimated CRCL calculation 15 ml/min; Estimated Glomerular Filt Rate 13; Glucose 554 mg/dL (65-105); Potassium 5.1 mmol/L (3.4-5.0); Sodium 129 mmol/L (137-145)
[2020-11-01 09:50] LABS: INR 2.1; Prothrombin Time 24.2 Seconds (11.1-14.7)
--- NOTE | 2020-11-01 09:59 | PCPTNOTE ---
Attempted to see patient for PT, however patient was out of room for dialysis.
--- NOTE | 2020-11-01 10:16 | PC.NURSE ---
Patient returned from dialysis via bed.
[2020-11-01 10:21] LABS: Glucose Point of Care > 500 mg/dl (65-105)
--- NOTE | 2020-11-01 10:57 | PCOTNOTE ---
Attempted to see patient this AM, patient refused OT, stating she did not feel well secondary to her blood sugar being quite high. Will attempt patient again later for OT or continue plan of care.
--- NOTE | 2020-11-01 11:01 | PM.PNNEP ---
Progress Note: A&P Assessment and Plan (1) End stage renal disease: Code(s): N18.6 - End stage renal disease Status: Chronic Assessment and Plan: reattempt HD tomorrow and eventually get back to T/T/S schedule while hospitalized follow electrolytes, volume status, and clearance (2) Volume overload: Code(s): E87.70 - Fluid overload, unspecified Status: Acute Assessment and Plan: improved following dialysis yesterday evening however, still with some evidence of edema/swelling DUF (dry ultrafiltration) yesterday for further fluid removal (3) Pneumonia: Qualifiers: Laterality: unspecified laterality Lung location: unspecified part of lung Pneumonia type: due to unspecified organism Qualified Code(s): J18.9 - Pneumonia, unspecified organism Code(s): J18.9 - Pneumonia, unspecified organism Status: Acute Assessment and Plan: suspicion by admission imaging empirically on antibiotics follow cultures (4) Chronic respiratory failure with hypoxia: Code(s): J96.11 - Chronic respiratory failure with hypoxia Status: Chronic Assessment and Plan: on chronic home oxygen due to COPD and ongoing smoking continue supportive therapy (5) Hypertension: Qualifiers: Hypertension type: essential hypertension Qualified Code(s): I10 - Essential (primary) hypertension Code(s): I10 - Essential (primary) hypertension Status: Chronic Assessment and Plan: reasonable control suspect ultrafiltration helped improve as well follow trend of hemodynamics (6) DM2 (diabetes mellitus, type 2): Qualifiers: Diabetes mellitus complication status: without complication Diabetes mellitus shelter insulin use: with shelter use Qualified Code(s): E11.9 - Type 2 diabetes mellitus without complications; Z79.4 - senior care (current) use of insulin Code(s): E11.9 - Type 2 diabetes mellitus without complications Status: Chronic Assessment and Plan: follow accuchecks -- appears to have brittle control on Lantus and SSI Will continue to follow Subjective Date/time seen: 11/01/20 11:01 Tolerated DUF session yesterday but was complaining of severe pain in her AVF this AM with minimal touch and did not want it to be used for dialysis today; ice pack applied to AVF and this seems to have helped with pain. Exam Narrative: Exam Narrative: General: WD/WN female in NAD Heart: normal S1 and S2; no rub Lungs: decreased breath sounds at bases Abdomen: soft, nontender, nondistended, positive bowel sounds Extremities: no cyanosis or clubbing; 1+ edema Skin: warm and intact Objective Data Vital Signs Vital Signs: Vital Signs Temp Pulse Resp BP Pulse Ox 11/01/20 10:20 36.6 C 61 16 106/48 L 99 11/01/20 08:51 70 11/01/20 08:31 36.4 C 70 20 107/39 L 98 11/01/20 08:00 98 11/01/20 04:00 36.1 C L 54 L 20 109/46 L 99 11/01/20 00:00 36.3 C L 50 L 20 101/45 L 99 10/31/20 22:19 98 10/31/20 22:00 36.3 C L 55 L 21 H 103/47 L 100 10/31/20 20:00 100 10/31/20 18:00 36.2 C L 59 L 18 98/36 L 98 10/31/20 17:27 60 106/43 L 10/31/20 14:00 36.1 C L 59 L 18 97/44 L 100 10/31/20 12:40 62 10/31/20 12:39 62 Intake/Output Intake/Output: Intake & Output 10/29/20 10/30/20 10/31/20 11/01/20 23:59 23:59 23:59 23:59 Intake Total 150 1390 2410 1420 Output Total 3400 500 3600 100 Balance -3250 890 -1190 1320 Meds/Results Medications: Active Medications Generic Name Dose Route Start Last Admin Trade Name José PRN Reason Stop Dose Admin Acetaminophen 650 mg 10/29/20 17:08 Acetaminophen 325 Mg Tablet PO Q4H PRN Mild Pain (1-3) or Fever Hydrocodone Bitart/Acetaminophen 1 tab 10/29/20 23:08 11/01/20 08:50 Hydrocodone/Acetaminophen (*Crx) 5-325 Mg Tablet PO 1 tab Q4H PRN Administration Pa
[2020-11-01 11:21] LABS: Glucose Point of Care > 500 mg/dl (65-105)
[2020-11-01] MEDS: INSULIN ASPART (*BKC) 100 UNITS/ML 8 UNITS SUB-Q (11:27)
[2020-11-01 13:03] LABS: Glucose Point of Care 453 mg/dl (65-105)
--- NOTE | 2020-11-01 13:58 | P.PNIM_ITS ---
Progress Note: A&P Assessment and Plan (1) End stage renal disease on dialysis: Code(s): N18.6 - End stage renal disease; Z99.2 - Dependence on renal dialysis Status: Chronic Assessment and Plan: * She recently started on hemodialysis 2 weeks ago. Her composing machine operator is Dr. Spears at [place]. * Dialysis schedule Sat//Sat. She was supposed to have dialysis 10/29 at [place] but she presented to the ED at [facility] due to shortness of breath and chest pain and was transferred here for hemodialysis capability. * She was dialyzed on 10/30 and 10/31 and her symptoms are improved. She remains on large doses of Lasix prescribed by her composing machine operator. * Monitor renal function. Making some urine still. * Appreciate nephrology consultation * Unable to proceed with hemodialysis today due to pain in AV fistula. Reattempt tomorrow. (2) Pneumonia: Qualifiers: Laterality: unspecified laterality Lung location: unspecified part of lung Pneumonia type: due to unspecified organism Qualified Code(s): J18.9 - Pneumonia, unspecified organism Code(s): J18.9 - Pneumonia, unspecified organism Status: Acute Assessment and Plan: * Mild infiltrate and atelectasis on CXR with a cough and shortness of breath, mild leukocytosis which has resolved. Was started on IV antibiotics for possible pneumonia with symptomatic improvement * Continue p.o. doxycycline and cefdinir. Albuterol as needed, mucinex, incentive spirometry. (3) DM2 (diabetes mellitus, type 2): Qualifiers: Diabetes mellitus complication status: without complication Diabetes mellitus longterm insulin use: with longterm use Qualified Code(s): E11.9 - Type 2 diabetes mellitus without complications; Z79.4 - penitentiary (current) use of insulin Code(s): E11.9 - Type 2 diabetes mellitus without complications Status: Chronic Assessment and Plan: * A1c is 9.8. Blood sugars poorly controlled after receiving only 10 units of Lantus on 10/30 instead of scheduled 42 units. * Blood sugars elevated up to 550 today. No anion gap or evidence of DKA. Sugars improving with additional 20 units Lantus and novolog. Last glucose 317. Continue to monitor closely * Continue high-dose sliding scale insulin. * Decrease Lantus to 30 units this evening. * Consult to industrial machine operator and life educator appreciated (4) COPD (chronic obstructive pulmonary disease): Qualifiers: COPD type: unspecified COPD Qualified Code(s): J44.9 - Chronic obstructive pulmonary disease, unspecified Code(s): J44.9 - Chronic obstructive pulmonary disease, unspecified Status: Chronic Assessment and Plan: * Continue with her home Symbicort. No respiratory distress. (5) Atrial flutter: Qualifiers: Atrial flutter type: unspecified Qualified Code(s): I48.92 - Unspecified atrial flutter Code(s): I48.92 - Unspecified atrial flutter Status: Chronic Assessment and Plan: * History of chronic atrial flutter. Rate controlled on home amiodarone, metoprolol. On long-term anticoagulation with warfarin. * INR 2.1 today. Monitor INR daily. (6) Chronic respiratory failure with hypoxia: Code(s): J96.11 - Chronic respiratory failure with hypoxia Status: Chronic Assessment and Plan: * She is tolerating her home oxygen requirement at 2 L/min with no respiratory distress
--- NOTE | 2020-11-01 13:58 | PM.IMPN ---
Progress Note: A&P Assessment and Plan (1) End stage renal disease on dialysis: Code(s): N18.6 - End stage renal disease; Z99.2 - Dependence on renal dialysis Status: Chronic Assessment and Plan: She recently started on hemodialysis 2 weeks ago. Her hospital unit clerk is Dr. Spears at [place]. Dialysis schedule Sat//Sat. She was supposed to have dialysis 10/29 at [place] but she presented to the ED at [facility] due to shortness of breath and chest pain and was transferred here for hemodialysis capability. She was dialyzed on 10/30 and 10/31 and her symptoms are improved. She remains on large doses of Lasix prescribed by her hospital unit clerk. Monitor renal function. Making some urine still. Appreciate nephrology consultation Unable to proceed with hemodialysis today due to pain in AV fistula. Reattempt tomorrow. (2) Pneumonia: Qualifiers: Laterality: unspecified laterality Lung location: unspecified part of lung Pneumonia type: due to unspecified organism Qualified Code(s): J18.9 - Pneumonia, unspecified organism Code(s): J18.9 - Pneumonia, unspecified organism Status: Acute Assessment and Plan: Mild infiltrate and atelectasis on CXR with a cough and shortness of breath, mild leukocytosis which has resolved. Was started on IV antibiotics for possible pneumonia with symptomatic improvement Continue p.o. doxycycline and cefdinir. Albuterol as needed, mucinex, incentive spirometry. (3) DM2 (diabetes mellitus, type 2): Qualifiers: Diabetes mellitus complication status: without complication Diabetes mellitus skilled nursing insulin use: with intermediate school teacher use Qualified Code(s): E11.9 - Type 2 diabetes mellitus without complications; Z79.4 - senior care (current) use of insulin Code(s): E11.9 - Type 2 diabetes mellitus without complications Status: Chronic Assessment and Plan: A1c is 9.8. Blood sugars poorly controlled after receiving only 10 units of Lantus on 10/30 instead of scheduled 42 units. Blood sugars elevated up to 550 today. No anion gap or evidence of DKA. Sugars improving with additional 20 units Lantus and novolog. Last glucose 317. Continue to monitor closely Continue high-dose sliding scale insulin. Decrease Lantus to 30 units this evening. Consult to forward air controller/air officer and inclusion paraeducator appreciated (4) COPD (chronic obstructive pulmonary disease): Qualifiers: COPD type: unspecified COPD Qualified Code(s): J44.9 - Chronic obstructive pulmonary disease, unspecified Code(s): J44.9 - Chronic obstructive pulmonary disease, unspecified Status: Chronic Assessment and Plan: Continue with her home Symbicort. No respiratory distress. (5) Atrial flutter: Qualifiers: Atrial flutter type: unspecified Qualified Code(s): I48.92 - Unspecified atrial flutter Code(s): I48.92 - Unspecified atrial flutter Status: Chronic Assessment and Plan: History of chronic atrial flutter. Rate controlled on home amiodarone, metoprolol. On long-term anticoagulation with warfarin. INR 2.1 today. Monitor INR daily. (6) Chronic respiratory failure with hypoxia: Code(s): J96.11 - Chronic respiratory failure with hypoxia Status: Chronic Assessment and Plan: She is tolerating her home oxygen requirement at 2 L/min with no respiratory distress. (7) Hypertension: Qualifiers: Hypertension type: essential hypertension Qualified Code(s): I10 - Essential (primary) hypertension Code(s): I10 - Essential (primary) hypertension Status: Chronic Assessment and Plan: Blood pressures reviewed and are generally stable, on the l
--- NOTE | 2020-11-01 14:10 | PCPTNOTE ---
Attempted to see patient for PT this afternoon, patient refused. Patient reported she did not feel good.
[2020-11-01 14:21] LABS: Glucose Point of Care 317 mg/dl (65-105)
[2020-11-01] MEDS: DOCUSATE SODIUM 100 MG CAPSULE PO (15:27)
[2020-11-01 17:52] LABS: Glucose Point of Care 196 mg/dl (65-105)
--- NOTE | 2020-11-01 18:20 | PC.NURSE ---
Patient refusing to eat dinner. She is stating since we will not adjust her diet orders, she is refusing to eat. I attempted to educate her in regards to her blood sugars fluctuating and the need to eat since she received insulin all day, including Lantus. Patient seems reluctant to listen to staff education and is argumentative. Mayela notified that she is refusing to eat and blood sugar for dinner was 196.
[2020-11-01] MEDS: WARFARIN (*PBKC) 3 MG TABLET PO (20:56)
[2020-11-01] MEDS: ATORVASTATIN 40 MG TABLET PO (20:56)
[2020-11-01] MEDS: EZETIMIBE 10 MG TABLET PO (20:56)
[2020-11-01] MEDS: PREGABALIN (*CRX) 50 MG CAPSULE 100 MG PO (20:56)
[2020-11-01 21:09] LABS: Glucose Point of Care 243 mg/dl (65-105)
[2020-11-02] VITALS (22 sets, daily range): BP systolic 117–149; BP diastolic 53–72; PULSE 56–88; RESP 14–21; TEMP 36–36.5; O2SAT 99–100
[2020-11-02 02:30] LABS: Glucose Point of Care 354 mg/dl (65-105)
[2020-11-02] MEDS: INSULIN ASPART (*BKC) 100 UNITS/ML 6 UNITS SUB-Q (02:50)
[2020-11-02 04:00] LABS: Hepatitis Be Antibody Nonreactive
[2020-11-02 07:07] LABS: Glucose Point of Care 270 mg/dl (65-105)
[2020-11-02] MEDS: INSULIN ASPART (*BKC) 100 UNITS/ML SUB-Q (07:30)
[2020-11-02] MEDS: INSULIN ASPART (*BKC) 100 UNITS/ML 8 UNITS SUB-Q ×2 (07:31→13:54)
[2020-11-02] MEDS: BUDESONIDE/FORMOTEROL 80/4.5 MCG 6.9 GM INHALER (*SP) 2 PUFF INHALATION (07:58)
[2020-11-02] MEDS: LIDOCAINE/PRILOCAINE CREAM 2.5-2.5% TUBE 1 EACH TOPICAL (08:26)
--- NOTE | 2020-11-02 09:29 | PC.NURSE ---
Pt to Dialysis per bed at 0830 11/02/20.
[2020-11-02 09:58] LABS: Hematocrit 35.5 % (37.0-47.0); Hemoglobin 10.8 g/dL (12.0-15.0); Mean Corpuscular HGB Conc 30.4 g/dl (32-36); Mean Corpuscular Hemoglobin 25.6 pg (26-34); Mean Corpuscular Volume 84.1 fl (80-100); Mean Platelet Volume 12.6 fl (7.4-10.4); Platelet Count Result 152 k/mm3 (150-375); Red Blood Count 4.22 M/mm3 (4.2-5.4); Red Cell Distribution Width 17.7 % (11.5-14.5); White Blood Count 5.8 K/mm3 (4.5-10.0)
[2020-11-02 10:09] LABS: Anion Gap 10 mmol/L (8-16); Blood Urea Nitrogen 47 mg/dL (7-17); Calcium 8.8 mg/dL (8.4-10.2); Carbon Dioxide 28 mmol/L (22-30); Chloride 97 mmol/L (98-107); Estimated CRCL calculation 19 ml/min; Estimated Glomerular Filt Rate 18; Glucose 271 mg/dL (65-105); Potassium 3.6 mmol/L (3.4-5.0); Sodium 135 mmol/L (137-145)
--- NOTE | 2020-11-02 10:14 | PCPTNOTE ---
Attempted to see patient for PT, however patient was out of room for dialysis. Will attempt to see patient again later for PT.
[2020-11-02 10:40] LABS: INR 2.3; Prothrombin Time 26.2 Seconds (11.1-14.7)
--- NOTE | 2020-11-02 11:18 | PCOTNOTE ---
Attempted to see Patient at this time. Patient out of the room, in dialysis per RN.
--- NOTE | 2020-11-02 11:45 | P.PNNP_ITS ---
Progress Note: A&P Assessment and Plan (1) End stage renal disease: Code(s): N18.6 - End stage renal disease Status: Chronic Assessment and Plan: * HD today and eventually transition back to T/T/S schedule while hospitalized * follow electrolytes, volume status, and clearance (2) Volume overload: Code(s): E87.70 - Fluid overload, unspecified Status: Acute Assessment and Plan: * improved following dialysis yesterday evening * however, still with some evidence of edema/swelling * push fluid removal as tolerated by hemodynamics (3) Pneumonia: Qualifiers: Pneumonia type: due to unspecified organism Laterality: unspecified laterality Lung location: unspecified part of lung Qualified Code(s): J18.9 - Pneumonia, unspecified organism Code(s): J18.9 - Pneumonia, unspecified organism Status: Acute Assessment and Plan: * suspicion by admission imaging * empirically on antibiotics * follow cultures (4) Chronic respiratory failure with hypoxia: Code(s): J96.11 - Chronic respiratory failure with hypoxia Status: Chronic Assessment and Plan: * on chronic home oxygen * due to COPD and ongoing smoking * continue supportive therapy (5) Hypertension: Qualifiers: Hypertension type: essential hypertension Qualified Code(s): I10 - Essential (primary) hypertension Code(s): I10 - Essential (primary) hypertension Status: Chronic Assessment and Plan: * reasonable control * suspect ultrafiltration helped improve as well * follow trend of hemodynamics (6) DM2 (diabetes mellitus, type 2): Qualifiers: Diabetes mellitus termite inspector insulin use: with termite inspector use Diabetes mellitus complication status: without complication Qualified Code(s): E11.9 - Type 2 diabetes mellitus without complications; Z79.4 - jail (current) use of insulin Code(s): E11.9 - Type 2 diabetes mellitus without complications Status: Chronic Assessment and Plan: * follow accuchecks -- appears to have brittle control * on Lantus and SSI Will continue to follow Subjective Date/time seen: 11/02/20 11:45 Tolerated dialysis treatment at the time of my visit (seen on HD at ~ 11:30AM); AVF pain seems to be doing better today; no apparent distress voiced; no events/problems overnight or earlier this AM. Exam Narrative: Exam Narrative: General: WD/WN female in NAD Heart: normal S1 and S2; no rub Lungs: decreased breath sounds at bases Abdomen: soft, nontender, nondistended, positive bowel sounds Extremities: no cyanosis or clubbing; 1+ edema Skin: no rash Objective Data Vital Signs Vital Signs: Vital Signs Temp Pulse Resp BP Pulse Ox 11/02/20 11:15 88 147/67 H 11/02/20 11:00 77 143/61 H 11/02/20 10:45 76 135/63 11/02/20 10:30 78 137/64 11/02/20 10:15 81 146/58 H 11/02/20 10:00 84 148/67 H 11/02/20 09:45 81 142/67 H 11/02/20 09:30 77 117/62 11/02/20 09:20 36.5 C 75 21 H 131/58 L 11/02/20 08:00 100 11/02/20 06:00 36.4 C L 56 L 21 H 130/53 L 100 11/01/20 22:00 36.3 C L 56 L 21 H 106/40 L 100 11/01/20 20:00 56 L 11/01/20 18:00 36.3 C L 60 16 126/48 L 100 11/01/20 13:10 92 Intake/Output Intake/Out
--- NOTE | 2020-11-02 11:45 | PM.PNNEP ---
Progress Note: A&P Assessment and Plan (1) End stage renal disease: Code(s): N18.6 - End stage renal disease Status: Chronic Assessment and Plan: HD today and eventually transition back to T/T/S schedule while hospitalized follow electrolytes, volume status, and clearance (2) Volume overload: Code(s): E87.70 - Fluid overload, unspecified Status: Acute Assessment and Plan: improved following dialysis yesterday evening however, still with some evidence of edema/swelling push fluid removal as tolerated by hemodynamics (3) Pneumonia: Qualifiers: Pneumonia type: due to unspecified organism Laterality: unspecified laterality Lung location: unspecified part of lung Qualified Code(s): J18.9 - Pneumonia, unspecified organism Code(s): J18.9 - Pneumonia, unspecified organism Status: Acute Assessment and Plan: suspicion by admission imaging empirically on antibiotics follow cultures (4) Chronic respiratory failure with hypoxia: Code(s): J96.11 - Chronic respiratory failure with hypoxia Status: Chronic Assessment and Plan: on chronic home oxygen due to COPD and ongoing smoking continue supportive therapy (5) Hypertension: Qualifiers: Hypertension type: essential hypertension Qualified Code(s): I10 - Essential (primary) hypertension Code(s): I10 - Essential (primary) hypertension Status: Chronic Assessment and Plan: reasonable control suspect ultrafiltration helped improve as well follow trend of hemodynamics (6) DM2 (diabetes mellitus, type 2): Qualifiers: Diabetes mellitus manager long term care insulin use: with manager long term care use Diabetes mellitus complication status: without complication Qualified Code(s): E11.9 - Type 2 diabetes mellitus without complications; Z79.4 - manager long term care (current) use of insulin Code(s): E11.9 - Type 2 diabetes mellitus without complications Status: Chronic Assessment and Plan: follow accuchecks -- appears to have brittle control on Lantus and SSI Will continue to follow Subjective Date/time seen: 11/02/20 11:45 Tolerated dialysis treatment at the time of my visit (seen on HD at ~ 11:30AM); AVF pain seems to be doing better today; no apparent distress voiced; no events/problems overnight or earlier this AM. Exam Narrative: Exam Narrative: General: WD/WN female in NAD Heart: normal S1 and S2; no rub Lungs: decreased breath sounds at bases Abdomen: soft, nontender, nondistended, positive bowel sounds Extremities: no cyanosis or clubbing; 1+ edema Skin: no rash Objective Data Vital Signs Vital Signs: Vital Signs Temp Pulse Resp BP Pulse Ox 11/02/20 11:15 88 147/67 H 11/02/20 11:00 77 143/61 H 11/02/20 10:45 76 135/63 11/02/20 10:30 78 137/64 11/02/20 10:15 81 146/58 H 11/02/20 10:00 84 148/67 H 11/02/20 09:45 81 142/67 H 11/02/20 09:30 77 117/62 11/02/20 09:20 36.5 C 75 21 H 131/58 L 11/02/20 08:00 100 11/02/20 06:00 36.4 C L 56 L 21 H 130/53 L 100 11/01/20 22:00 36.3 C L 56 L 21 H 106/40 L 100 11/01/20 20:00 56 L 11/01/20 18:00 36.3 C L 60 16 126/48 L 100 11/01/20 13:10 92 Intake/Output Intake/Output: Intake & Output 10/30/20 10/31/20 11/01/20 11/02/20 23:59 23:59 23:59 23:59 Intake Total 1390 2410 1920 840 Output Total 500 3600 100 Balance 890 -1190 1820 840 Meds/Results Medications: Active Medications Generic Name Dose Route Start Last Admin Trade Name Alexanderq PRN Reason Stop Dose Admin Acetaminophen 650 mg 10/29/20 17:08 Acetaminophen 325 Mg Tablet PO Q4H PRN Mild Pain (1-3) or Fever Hydrocodone Bitart/Acetaminophen 1 tab 10/29/20 23:08 11/01/20 18:19 Hydrocodone/Acetaminophen (*Crx) 5-325 Mg Tablet PO 1 tab Q4H PRN Administration Pain Rated 7-10 Albuterol 2.5 mg 10/30/20
--- NOTE | 2020-11-02 13:19 | PC.NURSE ---
Pt return from dialysis per bed.
[2020-11-02] MEDS: ASPIRIN 81 MG CHEWABLE TABLET PO (13:21)
[2020-11-02] MEDS: METOPROLOL TARTRATE 25 MG TABLET PO (13:21)
[2020-11-02] MEDS: guaiFENesin 12 HR 600 MG TABCR PO (13:21)
[2020-11-02] MEDS: FUROSEMIDE 80 MG TABLET 240 MG PO (13:22)
[2020-11-02] MEDS: NICOTINE (*PBKC) 7 MG PATCH 1 PATCH TRANSDERM (13:22)
[2020-11-02] MEDS: allopurinoL 50 MG TABLET PO (13:22)
[2020-11-02] MEDS: CEFDINIR 300 MG CAPSULE PO (13:22)
[2020-11-02] MEDS: POTASSIUM CHLORIDE 20 MEQ TABLET.ER PO (13:23)
[2020-11-02] MEDS: CHOLECALCIFEROL 1,000 UNITS TABLET 5000 UNITS PO (13:23)
[2020-11-02] MEDS: AMIODARONE HCL 200 MG TABLET PO (13:23)
[2020-11-02] MEDS: DOXYCYCLINE HYCLATE 100 MG TABLET PO (13:24)
[2020-11-02] MEDS: BRIMONIDINE TARTRATE 0.2% OP SOLN 5 ML BTL 1 DROP EACH EYE (13:24)
[2020-11-02] MEDS: calcitrioL 0.25 MCG CAPSULE PO (13:24)
[2020-11-02] MEDS: TIMOLOL MALEATE 0.5% OP SOLN 5 ML BOTTLE 1 DROP EACH EYE (13:30)
[2020-11-02 13:39] LABS: Glucose Point of Care 173 mg/dl (65-105)
--- NOTE | 2020-11-02 14:30 | PCOTNOTE ---
Attempted to see Patient this afternoon after having her dialysis this A.M. Patient refused to perform therapy services at this time. Patient verbalized she id leaving to go hoem today, saving her energy.
--- NOTE | 2020-11-02 14:34 | PCPTNOTE ---
Attempted to see patient for PT, patient refused. Patient reported she is just too worn out from dialysis and she's expecting to go home today.
--- NOTE | 2020-11-02 15:59 | PM.DS ---
DS: Admitting Diagnosis Admitting Diagnosis Admitting Diagnosis: ESRD with volume overload DS: Discharge Diagnosis Discharge Diagnosis (1) End stage renal disease on dialysis: Code(s): N18.6 - End stage renal disease; Z99.2 - Dependence on renal dialysis Status: Chronic Assessment and Plan: She recently started on hemodialysis 2 weeks ago. Her room service associate is Dr. Spears at [facility]. Dialysis schedule Sat//Sat. She was supposed to have dialysis 10/29 at [facility] but she presented to the ED at [facility] due to shortness of breath and chest pain and was transferred here for hemodialysis capability. She was dialyzed on 10/30, 10/31, and 11/02 and her symptoms improved. She remains on large doses of Lasix prescribed by her room service associate. Seen in consultation by nephrology. Continue with dialysis schedule (2) Pneumonia: Qualifiers: Pneumonia type: due to unspecified organism Laterality: unspecified laterality Lung location: unspecified part of lung Qualified Code(s): J18.9 - Pneumonia, unspecified organism Code(s): J18.9 - Pneumonia, unspecified organism Status: Acute Assessment and Plan: Mild infiltrate and atelectasis on CXR with a cough and shortness of breath, mild leukocytosis which resolved. Was started on IV antibiotics for possible pneumonia with symptomatic improvement Continue p.o. doxycycline and cefdinir. Supportive care provided including albuterol, mucinex, incentive spirometry. (3) Type 1 diabetes mellitus: Code(s): E10.9 - Type 1 diabetes mellitus without complications Status: Acute Assessment and Plan: A1c is 9.8. Blood sugars poorly controlled after receiving only 10 units of Lantus on 10/30 instead of scheduled 42 units, elevated up to 550. No anion gap or evidence of DKA. Sugars improved with additional Lantus and schedule NovoLog with meals. She will continue home regimen of Lantus 42 units nightly and sliding scale insulin with meals Encouraged close monitoring of blood sugars. Follow-up with highway engineering teacher Initially documented that she had type 2 DM, but patient later states she has Type 1. (4) COPD (chronic obstructive pulmonary disease): Qualifiers: COPD type: unspecified COPD Qualified Code(s): J44.9 - Chronic obstructive pulmonary disease, unspecified Code(s): J44.9 - Chronic obstructive pulmonary disease, unspecified Status: Chronic Assessment and Plan: Stable. Not in acute exacerbation. Continue with her home Symbicort. (5) Atrial flutter: Qualifiers: Atrial flutter type: unspecified Qualified Code(s): I48.92 - Unspecified atrial flutter Code(s): I48.92 - Unspecified atrial flutter Status: Chronic Assessment and Plan: History of chronic atrial flutter. Rate controlled on home amiodarone, metoprolol. On long-term anticoagulation with warfarin. INR at goal on 3 mg warfarin daily. Repeat INR as previously scheduled on 11/04/2020. (6) Chronic respiratory failure with hypoxia: Code(s): J96.11 - Chronic respiratory failure with hypoxia Status: Chronic Assessment and Plan: She is tolerating her chronic home oxygen requirement at 2 L/min with no respiratory distress. (7) Hypertension: Qualifiers: Hypertension type: essential hypertension Qualified Code(s): I10 - Essential (primary) hypertension Code(s): I10 - Essential (primary) hypertension Status: Chronic Assessment and Plan: Blood pressures reviewed and were generally stable, on the lower end of normal, maintained on home regimen with metoprolol. 8) [facility]
== END 2020-11-02 16:20 | disposition home health service (06) | DRG 291 ==
LOC: ANHIMU 10-30 10:04 → ANH2MED 10-30 15:42
PROVIDERS: Nurse Practitioner; Physician Assistant; Admitting Provider Family Medicine; PCP Nurse Practitioner Family; Visit Provider Physician Assistant
DX: I13.2 Hypertensive heart and chronic kidney disease with heart failure and with stage 5 chronic kidney disease, or end stage renal disease (principal); J18.9 Pneumonia, unspecified organism; N18.6 End stage renal disease; J96.11 Chronic respiratory failure with hypoxia; I48.92 Unspecified atrial flutter; J44.0 Chronic obstructive pulmonary disease with (acute) lower respiratory infection; E87.1 Hypo-osmolality and hyponatremia; I50.9 Heart failure, unspecified; I25.10 Atherosclerotic heart disease of native coronary artery without angina pectoris; E10.22 Type 1 diabetes mellitus with diabetic chronic kidney disease; E10.65 Type 1 diabetes mellitus with hyperglycemia; F17.210 Nicotine dependence, cigarettes, uncomplicated; K57.90 Diverticulosis of intestine, part unspecified, without perforation or abscess without bleeding; F32.9 Major depressive disorder, single episode, unspecified; H40.9 Unspecified glaucoma; E78.5 Hyperlipidemia, unspecified; Z79.01 Long term (current) use of anticoagulants; Z99.81 Dependence on supplemental oxygen; Z95.5 Presence of coronary angioplasty implant and graft; Z90.710 Acquired absence of both cervix and uterus; Z95.1 Presence of aortocoronary bypass graft; Z86.19 Personal history of other infectious and parasitic diseases; Z99.2 Dependence on renal dialysis; Z79.4 Long term (current) use of insulin
CPT/HCPCS: 36415; 71046; 80048; 80053; 80069; 82565; 82948; 83036; 83605; 83735; 84100; 84484; 85014; 85018; 85025; 85027; 85610; 86707; 87040; 87340; 93005; 93971; 94640; 96365; 96366; 97161; 97166; A9270; G0257; G0378; G0379; J0692; J1815; J7030; P9047

== ENCOUNTER 2021-09-25 21:07 | Inpatient (IN) | payer MEDICARE, MEDICAID, SELFPAY ==
--- NOTE | ~2021-09-25 | XR_ITS ---
EXAMINATION: XR chest 1V portable DATE: 09/26/2021 07:58 INDICATION: Cough TECHNIQUE: frontal view of the chest was obtained. COMPARISON: Chest radiograph dated 10/29/2020 FINDINGS: Cardiomegaly with pulmonary vascular congestion. Mild increased interstitial pattern bilateral mid an d lower lung zones which could represent mild pulmonary edema. No pneumothorax or definitive pleural effusion. Median sternotomy wires, ostial markers and mediastinal surgical clips consistent with prio r coronary artery bypass grafting. There is also been coronary artery stenting. IMPRESSION: 1. Likely congestive heart failure with cardiomegaly, pulmonary vascular congestion and likely mild p ulmonary edema. Reviewed, dictated and finalized at location A. IMPRESSION: 1. Likely congestive heart failure with cardiomegaly, pulmonary vascular conges tion and likely mild pulmonary edema.
--- NOTE | ~2021-09-25 | US_ITS ---
EXAMINATION: US venous doppler [facility] DATE: 09/26/2021 09:39 INDICATION: Lower limb swelling TECHNIQUE: Grayscale ultrasound images without and with compression and Doppler ultrasound images of the bilateral lower extremity veins were obtained. COMPARISON: None. FINDINGS: The visualized portions of right external iliac, common femoral vein, profunda (deep) femoral vein, f emoral vein, popliteal vein, posterior tibial veins, peroneal veins, lesser saphenous vein and greate r saphenous vein outflow are patent. The visualized portions of left external iliac, common femoral vein, profunda femoral vein, femoral v ein, popliteal vein, posterior tibial veins, peroneal veins, gastrocnemius vein, lesser saphenous vei n and greater saphenous vein outflow are patent. IMPRESSION: 1. No deep venous thrombosis in either lower limb. Reviewed, dictated and finalized at location A.
--- NOTE | ~2021-09-25 | XR_ITS ---
EXAMINATION: XR chest port-a-cath/central DATE: 09/27/2021 03:30 INDICATION: Central line placement TECHNIQUE: frontal view of the chest was obtained. COMPARISON: Chest radiograph dated 09/26/2021 FINDINGS: New left internal jugular central venous catheter with distal tip at the mid superior vena cava. Diff use increased interstitial pattern with a few scattered Evlin B lines in the bilateral mid and lower lung zones consistent with mild pulmonary edema. No pleural effusion or pneumothorax. Mild cardiomeg radha. Median sternotomy wires, ostial markers and mediastinal surgical clips consistent with prior cor onary artery bypass grafting. IMPRESSION: 1. Likely congestive heart failure with mild cardiomegaly and diffuse mild pulmonary edema. Reviewed, dictated and finalized at location A. IMPRESSION: 1. Likely congestive heart failure with mild cardiomegaly and diffuse mild pulm onary edema.
[2021-09-25 21:17] VITALS: BP 122/45; PULSE 87; RESP 20; TEMP 36.5; O2SAT 100; BMI 27.1
--- NOTE | 2021-09-25 21:32 | ADMGEN ---
This patient, Irene Arellano, was admitted to IMU Room 206-02 at 2115 as a direct admit from [facility]. Patient/family oriented to hospital policies and general routines including ID bracelet, bed and alarms, visiting hours, pain management, procedures, bathroom and other care routines, personal items, smoking policy, room service/diet, and visiting hours. Information on how to activate the Rapid Response Team has been discussed. Patient/Family are encouraged to report perceived risks to care and to ask questions if they do not understand what they are told or what they should do.
[2021-09-25 21:35] VITALS: O2SAT 95
[2021-09-25 22:00] VITALS: PULSE 93
--- NOTE | 2021-09-25 22:07 | PM.IMHP ---
H&P: HPI History of Present Illness Date/Time: Patient was placed observation status for expected length of stay less than 23 hours for management, will plan to re-evaluate tomorrow for improvement. 09/25/21 22:07 Chief Complaint: GI bleed Narrative: Ms. Yanez is a 66-year-old female who presented to an outside emergency room with complaints of bright red blood per rectum. Patient states that over the week and she thought she noted some dark tarry stools, and then today she was at hemodialysis and went to the bathroom and had bright red blood per rectum. Patient states that she then called her primary care provider after finishing dialysis was told to go to the emergency room for further evaluation. And often emergency room patient was noted to have an INR 11.7 with hemoglobin of 10.7 hematocrit 34.6. Patient was noted to be hemodynamically stable and was given Kcentra and vitamin K. patient states that she was transition from Eliquis to Coumadin for atrial fibrillation/flutter after being placed on hemodialysis. Patient denies any chest pain, abnormal shortness of breath, lightheadedness, dizziness, syncopal, or near syncopal episodes. Patient denies any nausea or vomiting. Patient denies any other site of active bleeding except for the bright red blood per rectum. Patient states that she was on antibiotics approximately 6 weeks ago for a sinus infection. Patient states she has not been eating or drinking very well, secondary to not having much of an appetite. Patient has a known history of end-stage renal disease and on hemodialysis Saturday, Saturday, and Saturday. Patient has significant cardiac history coronary artery disease status post coronary bypass grafting status post stent placement, atrial fib/flutter status post ablation, in states she has to have another ablation this year. Patient also has a history of COPD and she wears oxygen at 3 L per nasal cannula at all times at home. Patient states she is diabetic and she has not been able to take her full doses of insulin secondary to her blood sugar being on the low side. Patient states he does continue to smoke 1 pack cigarettes a day and has done so for 40 years. Patient states he has also had a wound to her left heel that she has been [facility] and a home health nurse has been doing 3 time weekly dressing changes. Review of Systems Review of Systems: A 12 point review of systems was completed patient all pertinent positive and negative per HPI the remainder are unremarkable. [facility] Past Medical History Medical History (Updated 09/25/21 @ 22:17 by Sierra Skinner APRN) Atrial flutter CAD (coronary artery disease) Chronic respiratory failure with hypoxia Chronically on oxygen at 2-3 L. Congestive heart failure COPD (chronic obstructive pulmonary disease) Depression Diverticulosis DVT (deep venous thrombosis) Right leg on chronic anticoagulation End stage renal disease on dialysis Saturday, Saturday, and Saturday. Glaucoma Hepatitis C Treated with medication Hyperlipidemia Hypertension Type 1 diabetes mellitus Surgical History Surgical History H/O cardiac radiofrequency ablation H/O heart artery stent X1 H/O: hysterectomy History of tonsillectomy S/P CABG x 4 S/P dialysis catheter insertion Graft right forearm Family History Family History Father Heart disease Hypertension Acute myocardial infarction Mother Cerebrovascular accident Social History Social History (Updated 10/29/20 @ 17:31 by María Meek NP) Social History: The patient tells me that she still smokes about 7 cigarettes a day. She is chronically on oxygen at 2-3 L. 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 She has 3 children. The patient is a full code. She does not have a durable power commercial real estate attorney for healthcare. No marijuana alcohol or illi
[2021-09-25] MEDS: HYDROcodone/acetaminophen (*CRX) 5-325 MG TABLET 1 TAB PO (22:31)
[2021-09-25 22:50] LABS: Basophils Percent Auto 0.6 % (0.2-1.2); Eosinophils Absolute Auto 0.1 K/mm3 (0-0.3); Eosinophils Percent Auto 0.8 % (0-4.4); Hematocrit 31.9 % (37.0-47.0); Hemoglobin 9.7 g/dL (12.0-15.0); Immature Granulocyte Absolute 0.04 K/mm3 (0.00-0.031); Immature Granulocyte Percent A 0.6 % (0-0.5); Lymphocytes Absolute Auto 0.69 K/mm3 (0.9-3.2); Lymphocytes Percent Auto 10.9 % (18.3-44.2); Mean Corpuscular HGB Conc 30.4 g/dl (32-36); Mean Corpuscular Hemoglobin 32.3 pg (26-34); Mean Corpuscular Volume 106.3 fl (80-100); Mean Platelet Volume 11.7 fl (7.4-10.4); Monocytes Absolute Auto 0.5 K/mm3 (0.1-0.6); Monocytes Percent Auto 7.9 % (2.6-8.5); Neutrophils Percent Auto 79.2 % (45.5-73.1); Platelet Count Result 156 k/mm3 (150-375); Red Cell Distribution Width 16.5 % (11.5-14.5); White Blood Count 6.3 K/mm3 (4.5-10.0)
[2021-09-25 23:05] LABS: INR 1.5; Prothrombin Time 17.7 Seconds (11.1-14.7)
[2021-09-25 23:22] VITALS: BP 110/55; PULSE 93; RESP 18; TEMP 36.6; O2SAT 99
[2021-09-25 23:22] LABS: Alanine Aminotransferase 20 U/L (4-35); Alkaline Phosphatase 119 U/L (38-126); Anion Gap 22 mmol/L (8-16); Aspartate Amino Transferase 29 U/L (14-36); Bilirubin,Total 1.5 mg/dL (0.2-1.3); Blood Urea Nitrogen 26 mg/dL (7-17); Calcium 8.1 mg/dL (8.4-10.2); Carbon Dioxide 21 mmol/L (22-30); Chloride 91 mmol/L (98-107); Estimated CRCL calculation 13 ml/min; Estimated Glomerular Filt Rate 12; Glucose 538 mg/dL (65-110); Potassium 5.4 mmol/L (3.4-5.0); Sodium 134 mmol/L (137-145)
[2021-09-26] VITALS (17 sets, daily range): BP systolic 90–115; BP diastolic 38–48; PULSE 17–84; RESP 10–100; TEMP 36.4–37.2; O2SAT 98–100; BMI 25.5
--- NOTE | 2021-09-26 | ECHO_ITS ---
Patient Info Name: Irene Arellano Age: 66 years : 1955 Gender: Female Ht: 67 in Wt: 163 lbs BSA: 1.88 m2 HR: 72 bpm BP: 104 / 46 mmHg Heart Rhythm: Sinus Rhythm Exam Date: 09/26/2021 8:51 AM Exam Location: [facility] Patient Status: Inpatient Admit Date: 09/25/2021 Staff Ordering Physician: Victorino Canseco MD [employer] Press Operator: Eddie Pritchard RDCS, RT Attending Provider: Chapito Weir MD Exam Type: CA echo dop color flow w con Study Info Indications I50.9 - Heart failure, unspecified Complete two-dimensional, color flow and Doppler transthoracic echocardiogram is performed with contrast to opacify the left ventricle and to improve the deliniation of the left ventricle endocardial borders. Strain analysis performed. Summary 1. Complete two-dimensional, color flow and Doppler transthoracic echocardiogram is performed with contrast to opacify the left ventricle and to improve the deliniation of the left ventricle endocardial borders. 2. Strain analysis performed. 3. Left ventricular chamber dimension is mildly enlarged. 4. Left ventricular systolic function is severely reduced, estimated at 30-35%. 5. There is mildly increased left ventricular wall thickness. 6. The left ventricular diastolic function is abnormal. 7. Global longitudinal strain is abnormal at -10 %. 8. The inferior wall, basal inferolateral wall, and mid inferolateral wall are akinetic. 9. The anterior wall, inferoseptal wall, anterolateral wall, anteroseptal wall, and apical cap are hypokinetic. 10. Left atrial chamber dimension is moderately enlarged. 11. Right atrial chamber dimension is moderately enlarged. 12. There is mild mitral valve regurgitation. 13. There is mild aortic valve regurgitation. 14. There is moderate tricuspid valve regurgitation. 15. Severe pulmonary hypertension, estimated pulmonary arterial systolic pressure is 67 mmHg. 16. There is mild pulmonic regurgitation. Left Ventricle Left ventricular chamber dimension is mildly enlarged. Left ventricular systolic function is severely reduced, estimated at 30-35%. There is mildly increased left ventricular wall thickness. The left ventricular diastolic function is abnormal. Global longitudinal strain is abnormal at -10 %. The inferior wall, basal inferolateral wall, and mid inferolateral wall are akinetic. The anterior wall, inferoseptal wall, anterolateral wall, anteroseptal wall, and apical cap are hypokinetic. Right Ventricle Right ventricular chamber dimension is normal. Right ventricular systolic function is normal. Left Atria Left atrial chamber dimension is moderately enlarged. Right Atria Right atrial chamber dimension is moderately enlarged. Atrial Septum Intact interatrial septum visualized by color flow imaging. Aortic Valve The aortic valve is trileaflet. There is mild aortic valve sclerosis. There is no aortic valve stenosis. There is mild aortic valve regurgitation. Pulmonic Valve The pulmonic valve is normal. There is no pulmonic valve stenosis. There is mild pulmonic regurgitation. Mitral Valve The mitral valve has calcified annulus. There is no mitral valve stenosis. There is mild mitral valve regurgitation. Tricuspid Valve The tricuspid valve leaflets are normal. There is no significant tricuspid valve stenosis. There is moderate tricuspid valve regurgitation. Severe pulmonary hypertension, estimated pulmonary arterial systolic pressure is 67 mmHg. Pericardium/Pleu
[2021-09-26 00:24] LABS: Fractional Inspired Oxygen 32 %; HCO3 VBG 21.3 mEq/l (24.0-30.0); PCO2 VBG 39.9 mmHg (42.0-48.0); PO2 VBG 65.7 mmHg (35.0-45.0); pH VBG 7.345 (7.300-7.400)
[2021-09-26] MEDS: INSULIN HUMAN REGULAR (*BKC) 100 UNITS/ML 10 UNITS IV PUSH (00:24)
[2021-09-26 00:25] LABS: Device NASAL CANNULA
[2021-09-26 00:33] LABS: Glucose Point of Care > 500 mg/dl (65-105)
[2021-09-26 00:33] LABS: Beta-Hydroxybutyrate/Acetoacetate 7.32 mmol/L (0.02-0.27)
--- NOTE | 2021-09-26 01:22 | PC.NURSE ---
This patient, Irene Arellano, was transferred to ICU-5 on 09/26/21 at 0110. Personal belongings sent with patient. Report given to JAD Arvizu. Appropriate documentation sent with patient.
[2021-09-26 02:24] LABS: Glucose Point of Care 428 mg/dl (65-105)
[2021-09-26 02:38] LABS: Lactic Acid Reflex 2.5 mmol/L (0.7-2.0)
[2021-09-26 02:39] LABS: Anion Gap 19 mmol/L (8-16); Blood Urea Nitrogen 31 mg/dL (7-17); Carbon Dioxide 24 mmol/L (22-30); Chloride 92 mmol/L (98-107); Estimated CRCL calculation 12 ml/min; Estimated Glomerular Filt Rate 11; Glucose 434 mg/dL (65-110); Potassium 4.7 mmol/L (3.4-5.0); Sodium 135 mmol/L (137-145)
[2021-09-26] MEDS: INSULIN HUMAN REGULAR (*BKC) 100 UNITS in SODIUM CHLORIDE 0.9% IV 99 ML 7.9 UNITS IV CONT (03:02)
[2021-09-26 03:10] LABS: Glucose Point of Care 454 mg/dl (65-105)
[2021-09-26 04:03] LABS: Glucose Point of Care 425 mg/dl (65-105)
[2021-09-26] MEDS: HYDROcodone/acetaminophen (*CRX) 5-325 MG TABLET 1 TAB PO ×2 (05:07→09:28)
[2021-09-26 05:22] LABS: Reflex Lactic Acid Yes or No Add Lactic
[2021-09-26 05:22] LABS: Glucose Point of Care 294 mg/dl (65-105)
[2021-09-26 06:04] LABS: Albumin Level 3.8 g/dL (3.5-5.1); Anion Gap 15 mmol/L (8-16); Blood Urea Nitrogen 35 mg/dL (7-17); Calcium 8.1 mg/dL (8.4-10.2); Carbon Dioxide 25 mmol/L (22-30); Chloride 97 mmol/L (98-107); Estimated CRCL calculation 12 ml/min; Estimated Glomerular Filt Rate 11; Glucose 208 mg/dL (65-110); Magnesium 2.2 mg/dL (1.6-2.3); Phosphorus 5.5 mg/dL (2.5-4.5); Potassium 4.2 mmol/L (3.4-5.0); Sodium 137 mmol/L (137-145)
[2021-09-26 06:08] LABS: Glucose Point of Care 183 mg/dl (65-105)
[2021-09-26 06:31] LABS: Hematocrit 30.6 % (37.0-47.0); Hemoglobin 9.6 g/dL (12.0-15.0); Lactic Acid 2.4 mmol/L (0.7-2.0); Mean Corpuscular HGB Conc 31.4 g/dl (32-36); Mean Corpuscular Hemoglobin 32.2 pg (26-34); Mean Corpuscular Volume 102.7 fl (80-100); Mean Platelet Volume 11.4 fl (7.4-10.4); Platelet Count Result 158 k/mm3 (150-375); Red Blood Count 2.98 M/mm3 (4.2-5.4); Red Cell Distribution Width 16.2 % (11.5-14.5); White Blood Count 4.7 K/mm3 (4.5-10.0)
[2021-09-26 06:41] LABS: Magnesium 2.1 mg/dL (1.6-2.3); Phosphorus 5.3 mg/dL (2.5-4.5)
[2021-09-26 06:46] LABS: INR 1.4; Prothrombin Time 16.2 Seconds (11.1-14.7)
--- NOTE | 2021-09-26 07:02 | PM.CNNEP ---
Assessment and Plan Additional Plan 1. End-stage renal disease. This is due to diabetes and hypertension. She probably has some vascular disease as well. She does well in dialysis except for her blood pressure. But she does have significant residual function and so her urine output helps with fluid removal. Today her potassium is okay. She does have a little bit of edema. She is due for dialysis tomorrow. 2. GI bleed. The patient has bright red blood per rectum. She does have a history of diverticulosis. Her INR was high at 11 yesterday. Today it is down to 1.3. Juany Bobo, Dr. Kowalski, has been consulted. 3. Paroxysmal Atrial fibrillation. She is in sinus at this point in time. She says she is going to get another ablation so she can come off the amiodarone. She was changed from Coumadin to Eliquis because of her dialysis. One she goes back on anticoagulants, I think she would be better off on Eliquis again because of her very difficult to control INR values. 4. The patient has COPD. She continues to smoke. One week ago she tried vaping and has been doing this for the last week in efforts to try to come off cigarettes altogether. 5. Anemia of chronic kidney disease. She is on Epogen. We can check some irons. 6. Diabetes. The patient has DKA. This is being managed by the scrap metal collector. 7. Chronic hypotension. Possibly due to her heart. 8. The patient has edema. She was planning to get venous Dopplers as an outpatient. She has a past history of a DVT. Will go ahead and get these. Consider an echocardiogram as well. History of Present Illness Reason for Consult Consult date: 09/26/21 Chief Complaint Chief complaint: GI Bleed History of Present Illness Narrative: Irene fulton is a very pleasant 66-year-old lady who has multiple medical problems including end-stage renal disease on Saturday under the care of Dr. Cruz at [facility]. She also has diabetes, former hypertension now hypotension, a ?weak? heart, paroxysmal atrial fibrillation on Eliquis until 2 years ago now on Coumadin, COPD and she still smokes, and chronic hypotension now. The patient was doing okay until last weekend when she noted blood in the stools. She said that there were clots. This continued over the weekend. Yesterday she went to dialysis and did okay but then had to go to the bathroom after the treatments and saw more blood in the stools. She called her primary care physician and he told her to go to the ER. She went to [facility] Emergency Room and she had a hemoglobin above 10 but an INR of 11.. But she had 2 bloody bowel movements there. So she was transferred to [facility] for admission because they do not do dialysis there. She was admitted to the IMU and had 2 more bloody stools. She was found to have DKA so she was moved to the ICU for an insulin drip. The patient says that she has had paroxysmal atrial fibrillation for a few years. She is on Eliquis and did well. Two years ago when she went on dialysis she was switched to Coumadin. She has been getting INRs weekly and then just a couple of weeks ago they decided to stretch that out to every other week because they had not changed her Coumadin dose for a long time. Her blood pressure has been quite troublesome. She does have some swelling and it is always there. The try to take the fluid off in dialysis but her blood pressure drops. Consequently she has been placed on chlorthalidone plus furosemide at high doses to keep her from gaining much weight between treatments. They did manage to get her 1kilo below her dry weight yesterday. Review of Systems Constitutional: Constitutional: Reports no additional constitutional complaints Eyes: Eyes: Reports no additional eye complaints ENT: Reports system reviewed and no additional complaints, except as documented Cardiovascular: Cardiovascular: Reports no additional cardiovascular complaints Respirat
[2021-09-26 07:16] LABS: Glucose Point of Care 60 mg/dl (65-105)
[2021-09-26] MEDS: DEXTROSE 50% 25 GM/50 ML SYRINGE IV PUSH ×2 (07:29→09:19)
[2021-09-26] MEDS: MIDODRINE HCL 10 MG TABLET PO ×3 (08:28→17:19)
[2021-09-26] MEDS: CHOLECALCIFEROL 1,000 UNITS TABLET 5000 UNITS PO (08:29)
[2021-09-26] MEDS: AMIODARONE HCL 200 MG TABLET PO (08:29)
[2021-09-26] MEDS: BRIMONIDINE TARTRATE 0.2% OP SOLN 5 ML BTL 1 DROP EACH EYE ×2 (08:29→20:27)
[2021-09-26] MEDS: TIMOLOL MALEATE 0.5% OP SOLN 5 ML BOTTLE 1 DROP EACH EYE ×2 (08:29→20:27)
[2021-09-26] MEDS: PANTOPRAZOLE SODIUM IV 40 MG VIAL IV PUSH ×2 (08:30→20:27)
[2021-09-26 08:35] LABS: Glucose Point of Care 78 mg/dl (65-105)
[2021-09-26] MEDS: PERFLUTREN LIPID MICROSPHERES 1.5 ML VIAL DILUTED TO 10 ML TOTAL VOLUME IV PUSH (08:58)
--- NOTE | 2021-09-26 08:58 | IVDEFINITY ---
Prior to administration of IV Definity the patient was educated on the risks and benefits of the imaging enhancing agent including potential adverse side effects. The patient verbalized understanding. Allergies were verified. No exclusion criteria were identified and at least one of the following inclusion criteria were met: 1) physician request, 2) patient technically difficult to image (per the [place] [employer] guidelines of two or more segments not discernable within the apical view), or 3) questionable left ventricular function. ?
[2021-09-26 09:16] LABS: Glucose Point of Care 64 mg/dl (65-105)
[2021-09-26] MEDS: SILVERGEL (ELTA) 45 ML 1 APPLIC TOPICAL (09:26)
--- NOTE | 2021-09-26 09:52 | WPDCNINT ---
Assessment and Plan Assessment and plan (1) Upper GI bleed: Code(s): K92.2 - Gastrointestinal hemorrhage, unspecified Status: Acute Assessment and Plan: patient's symptoms are consistent with had upper GI bleed although she was coagulopathic with elevated INR from her Coumadin. Coagulopathy was reversed with Kcentra and vitamin K INR at this point is 1.6 monitor hemoglobin start IV PPI q.12 hours GI consulted NPO (2) Elevated INR: Code(s): R79.1 - Abnormal coagulation profile Status: Acute Assessment and Plan: see above (3) DKA (diabetic ketoacidosis): Code(s): E11.10 - Type 2 diabetes mellitus with ketoacidosis without coma Status: Acute Assessment and Plan: patient appeared to be in DKA on her labs With blood glucose more than 500 and positive beta hydroxybutyrate patient was transferred to ICU and started on IV insulin infusion. Patient was not given any fluids due to end-stage renal disease and congestive heart failure with volume overload this morning her anion gap has closed and her blood sugars also low since she is NPO I have discontinue insulin infusion and transitioned to sliding scale. Once blood sugars improved and are elevated I will resume Lantus (4) Diabetes mellitus: Code(s): E11.9 - Type 2 diabetes mellitus without complications Status: Acute Assessment and Plan: see above check HbA1c (5) Chronic respiratory failure with hypoxia: Code(s): J96.11 - Chronic respiratory failure with hypoxia Status: Chronic Assessment and Plan: patient has chronic respiratory failure and is on 2 L nasal cannula at home likely a combination of congestive heart failure end-stage renal disease and COPD patient does not produce any urine and will need hemodialysis for fluid removal. Nephrology has been consulted for hemodialysis which I anticipate will be tomorrow continue bronchodilators for COPD as patient does not appear in any exacerbation. Chest x-ray shows pulmonary edema she is afebrile with normal WBC count. I will hold any antibiotics at this time Check procalcitonin (6) COPD (chronic obstructive pulmonary disease): Qualifiers: COPD type: unspecified COPD Qualified Code(s): J44.9 - Chronic obstructive pulmonary disease, unspecified Code(s): J44.9 - Chronic obstructive pulmonary disease, unspecified Status: Chronic Assessment and Plan: see above (7) Congestive heart failure: Qualifiers: Heart failure chronicity: unspecified Heart failure type: unspecified Qualified Code(s): I50.9 - Heart failure, unspecified Code(s): I50.9 - Heart failure, unspecified Status: Chronic Assessment and Plan: hemodialysis to remove fluid check echocardiogram (8) End stage renal disease on dialysis: Code(s): N18.6 - End stage renal disease; Z99.2 - Dependence on renal dialysis Status: Chronic Assessment and Plan: Nephrology has been consulted for hemodialysis which will likely be scheduled for tomorrow patient is essentially anuric monitor electrolytes (9) Pulmonary edema: Code(s): J81.1 - Chronic pulmonary edema Status: Acute Assessment and Plan: see above (10) Lower extremity edema: Code(s): R60.0 - Localized edema Status: Acute Assessment and Plan: lower extremity Dopplers were done and were negative for DVT hemodialysis to remove fluid (11) Atrial flutter: Qualifiers: Atrial flutter type: unspecified Qualified Code(s): I48.92 - Unspecified atrial flutter Code(s): I48.92 - Unspecified atrial flutter Status: Chronic Assessment and Plan: currently in sinus rhythm monitor Additional Plan DVT prophylaxis - SCDs Stress ulcer prophylaxis - IV PPI Nutrition - NPO Code Status - Full Code Stock Broker Consult Note Consult date: 09/26/21 HPI: Julia
[2021-09-26] MEDS: FLUTICASONE/SALMETEROL 115-21 MCG INHALER 1 PUFF 2 PUFF INHALATION ×2 (10:23→20:14)
[2021-09-26 10:45] LABS: Glucose Point of Care 164 mg/dl (65-105)
[2021-09-26 11:01] LABS: Hematocrit 28.1 % (37.0-47.0); Hemoglobin 8.8 g/dL (12.0-15.0)
[2021-09-26] MEDS: ALBUMIN HUMAN 5% 25 GM/500 ML BTL IV CONT (11:27)
[2021-09-26 12:19] LABS: Hemoglobin A1C 8.3 % (<5.7)
[2021-09-26 12:46] LABS: Glucose Point of Care 183 mg/dl (65-105)
[2021-09-26 12:50] LABS: Procalcitonin 0.2 ng/mL
[2021-09-26 13:11] LABS: Appearance Urine Cloudy (Clear); Bilirubin Urine 2+ (Negative); Blood Urine 2+ (Negative); Color Urine Amber (Yellow); Glucose Urine UA 2+ mg/dL (Negative); Ketones Urine 1+ mg/dL (Negative); Leukocyte Esterase Ur Trace LEU/UL (Negative); Nitrate Urine Negative (Negative); Protein Urine 1+ mg/dL (Negative); Specific Grav Ur 1.025 (1.001-1.035); Urobilinogen Urine 0.2 mg/dL (<2.0)
[2021-09-26 13:17] LABS: Bacteria Urine Trace /hpf; Mucus Urine Rare /lpf; RBC Urine 0-2 /hpf (0-2); Squamous Epithelial Cell Urine Many /hpf (Few); WBC Urine 16-20 /hpf
[2021-09-26 13:22] LABS: Add Urine Microscopic? YES
[2021-09-26 13:41] LABS: Glucose Point of Care 175 mg/dl (65-105)
--- NOTE | 2021-09-26 15:55 | PM.IMPN ---
Progress Note: A&P Assessment and Plan (1) Upper GI bleed: Code(s): K92.2 - Gastrointestinal hemorrhage, unspecified Status: Acute (2) DKA (diabetic ketoacidosis): Code(s): E11.10 - Type 2 diabetes mellitus with ketoacidosis without coma Status: Acute (3) End stage renal disease on dialysis: Code(s): N18.6 - End stage renal disease; Z99.2 - Dependence on renal dialysis Status: Chronic (4) Type 1 diabetes mellitus: Code(s): E10.9 - Type 1 diabetes mellitus without complications Status: Acute (5) End stage renal disease: Code(s): N18.6 - End stage renal disease Status: Chronic (6) Lower extremity edema: Code(s): R60.0 - Localized edema Status: Acute (7) Pulmonary edema: Code(s): J81.1 - Chronic pulmonary edema Status: Acute (8) Diabetes mellitus: Code(s): E11.9 - Type 2 diabetes mellitus without complications Status: Acute (9) Volume overload: Code(s): E87.70 - Fluid overload, unspecified Status: Acute (10) Elevated INR: Code(s): R79.1 - Abnormal coagulation profile Status: Acute (11) Chronic respiratory failure with hypoxia: Code(s): J96.11 - Chronic respiratory failure with hypoxia Status: Chronic (12) Hypertension: Qualifiers: Hypertension type: essential hypertension Qualified Code(s): I10 - Essential (primary) hypertension Code(s): I10 - Essential (primary) hypertension Status: Chronic (13) Congestive heart failure: Qualifiers: Heart failure chronicity: unspecified Heart failure type: unspecified Qualified Code(s): I50.9 - Heart failure, unspecified Code(s): I50.9 - Heart failure, unspecified Status: Chronic (14) COPD (chronic obstructive pulmonary disease): Qualifiers: COPD type: unspecified COPD Qualified Code(s): J44.9 - Chronic obstructive pulmonary disease, unspecified Code(s): J44.9 - Chronic obstructive pulmonary disease, unspecified Status: Chronic (15) DM2 (diabetes mellitus, type 2): Qualifiers: Diabetes mellitus complication status: without complication 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 use Qualified Code(s): E11.9 - Type 2 diabetes mellitus without complications; 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 Patient will be kept NPO at this time until seen by GI. Will have a stat CBC performed and then have hemoglobin and hematocrit drawn every 6 hours to monitor closely. Patient's INR outside facility was 11.7. Patient did receive Kcentra as well as vitamin K. Will recheck an INR and continue to monitor. Patient states that her INR is not room this elevated, and the highest she has ever seen is 7.0. Patient states that she was extremely hesitant to receive any reversal agents secondary to being told that she should never receive reversal agents. Patient denies having any valvular replacements and states that she is on Coumadin for atrial fibrillation/flutter. Patient's ventricular rate is well controlled this time. Patient's Coumadin has been placed on hold secondary to GI bleed and elevated INR. Will resume patient's home medications once we have a verified medication list. Nephrology has been consult and appreciate further recommendations. Patient st
--- NOTE | 2021-09-26 16:18 | WPDGICN ---
Assessment and Plan Assessment and plan (1) GI bleed: Code(s): K92.2 - Gastrointestinal hemorrhage, unspecified Status: Acute Assessment and Plan: this was secondary coagulopathy associated to coumadin, inr reversed with medical treatment and now 1.4 hemodynamically stable will proceed with egd and colonoscopy- assess for ulcer, avm, diverticular, etc (2) Coagulopathy: Code(s): D68.9 - Coagulation defect, unspecified Status: Acute Assessment and Plan: only new medication recently was tramadol, wonder if interacted with coumadin (denies use of antibiotics recently- recently they have been monitoring her inr every 2 weeks) this was corrected and now inr is 1.4 (3) Acute blood loss anemia: Code(s): D62 - Acute posthemorrhagic anemia Status: Acute Assessment and Plan: from coagulopathy and gib she is in icu (4) End stage renal disease: Code(s): N18.6 - End stage renal disease Status: Chronic Assessment and Plan: last dialysis yesterday (5) DKA (diabetic ketoacidosis): Code(s): E11.10 - Type 2 diabetes mellitus with ketoacidosis without coma Status: Acute Assessment and Plan: treated and resolved in ICU (6) Atrial flutter: Qualifiers: Atrial flutter type: unspecified Qualified Code(s): I48.92 - Unspecified atrial flutter Code(s): I48.92 - Unspecified atrial flutter Status: Chronic (7) Congestive heart failure: Qualifiers: Heart failure type: unspecified Heart failure chronicity: unspecified Qualified Code(s): I50.9 - Heart failure, unspecified Code(s): I50.9 - Heart failure, unspecified Status: Chronic GI Consult Note Consult date/time: 09/26/21 16:18 Reason for consult: gib, coagulopathy HPI: Irene Arellano is a 66 year old female with history of DM, ESRD for 1 year, HTN, CHF, CAD and Afib on coumadin for last 2 years (she says that previously was on brilinta). About 2 weeks ago she fell and injured tailbone, then started using tramadol and hydrocodone as needed (she had XR that did not show acute findings per patient). Last few days noted small mount of dark stool but yesterday when she had large amount of BRBPR and went to another ER. She was transferred to our hospital because lack of GI coverage, she was found to have INR 11.7 with hemoglobin of 10.7. She was given Kcentra and vitamin K. She had clots in stool but is slowing down and she is hemodynamically stable. Repeat hb 8.8, glucose 420 and treated also for DKA. Never had EGD, had colonoscopy but over 10 years ago. Review of Systems Constitutional: Constitutional: Denies chills Eyes: Eyes: Denies blurry vision ENT: Reports Normal hearing present Cardiovascular: Cardiovascular: Denies chest pain Respiratory: Respiratory: Denies cough Gastrointestinal: Gastrointestinal: Denies abdominal pain, Reports hematochezia and Denies hematemesis Genitourinary: Comments: on dialysis Musculoskeletal: Musculoskeletal: Reports back pain (from recent fall) Integumentary/Breasts: Skin/Breast: Denies dry skin Neurologic: Denies headache(s) Psychiatric: Psychiatric: Reports no additional psychiatric complaints PMFSH Past Medical History Medical History (Updated 09/26/21 @ 16:26 by Anshu Young MD) Acute blood loss anemia Atrial flutter CAD (coronary artery disease) Chronic respiratory failure with hypoxia Chronically on oxygen at 2-3 L. Coagulopathy Congestive heart failure COPD (chronic obstructive pulmonary disease) Depression Diverticulosis DVT (deep venous thrombosis) Right leg on chronic anticoagulation End stage renal disease on dialysis Saturday, Saturday, and Saturday. Glaucoma Hepatitis C Treated with medication Hyperlipidemia Hypertension Type 1 diabetes mellitus Surgical History Surgical History H/O cardiac radiofrequency
[2021-09-26 17:14] LABS: Hemoglobin 9.5 g/dL (12.0-15.0)
[2021-09-26] MEDS: PEG (High)/E-LYTE SOLN 4,000 ML BTL 4000 ML PO (17:19)
[2021-09-26] MEDS: BISACODYL 5 MG TABLET EC 20 MG PO (17:19)
[2021-09-26 17:46] LABS: Glucose Point of Care 273 mg/dl (65-105)
[2021-09-26] MEDS: INSULIN ASPART (*BKC) 100 UNITS/ML SUB-Q ×2 (17:47→20:47)
[2021-09-26] MEDS: ATORVASTATIN 40 MG TABLET PO (20:26)
[2021-09-26] MEDS: allopurinoL 50 MG TABLET PO (20:26)
[2021-09-26] MEDS: EZETIMIBE 10 MG TABLET PO (20:27)
[2021-09-26] MEDS: PREGABALIN (*CRX) 50 MG CAPSULE 100 MG PO (20:31)
[2021-09-26] MEDS: INSULIN GLARGINE (*BKC) 100 UNITS/ML 20 UNITS SUB-Q (20:46)
[2021-09-26 21:00] LABS: Glucose Point of Care 251 mg/dl (65-105)
[2021-09-26 22:58] LABS: Hematocrit 30.5 % (37.0-47.0); Hemoglobin 9.5 g/dL (12.0-15.0)
[2021-09-27] VITALS (34 sets, daily range): BP systolic 83–145; BP diastolic 36–94; PULSE 45–107; RESP 11–25; TEMP 36.4–37; O2SAT 89–100
[2021-09-27 00:10] LABS: Glucose Point of Care 93 mg/dl (65-105)
[2021-09-27] MEDS: SODIUM CHLORIDE 0.9% IV 500 ML IV CONT (00:16)
[2021-09-27] MEDS: DOPamine 400 MG/D5W 250 ML 400 MG/250 ML BAG 5.56 MG IV CONT (01:17)
[2021-09-27] MEDS: MAGNESIUM CITRATE 300 ML BTL 150 ML PO (03:00)
--- NOTE | 2021-09-27 03:17 | WPDPROCEDUR ---
Procedures Central Line Placement Left IJ: Central Line Date: 09/27/21 Central Line Time: 03:19 Discussed w/ the patient/family/POA,the placement of a central venous catheter, including its clinical necessity/indication & associated potential risks, benifits and alternatives.: Yes The patient/family/POA understand(s) and acknowledge(s) the need to proceed with central venous catheter insertion as an important element of the patient's clinical management.: Yes Time Out Performed: Yes Patient Position: trendelenburg Patient placed on monitor/pulse ox: Yes Provider Prep: mask, sterile gown, sterile gloves, Max. sterile barrier precautions, cap and hand hygiene with conventional soap/water or alcohol based hand rub Central line prep: 2% Chlorhexidine scrub Local anesthesia used: lidocaine 1% Sterile US Technique with sterile gel/sterile probe covers: Yes Central line lumen inserted: triple Length (cm): 16 Post Procedure: sutured in place, good blood return, all ports aspirated, flushed, capped and aseptic technique maintained throughout procedure Post procedure x-ray: other (CXR pending) Patient tolerated procedure: well
[2021-09-27] MEDS: HYDROcodone/acetaminophen (*CRX) 5-325 MG TABLET 1 TAB PO ×2 (05:02→09:20)
[2021-09-27 05:04] LABS: Hemoglobin 10.1 g/dL (12.0-15.0); Mean Corpuscular HGB Conc 31.6 g/dl (32-36); Mean Corpuscular Hemoglobin 32.7 pg (26-34); Mean Corpuscular Volume 103.6 fl (80-100); Mean Platelet Volume 11.6 fl (7.4-10.4); Platelet Count Result 186 k/mm3 (150-375); Red Blood Count 3.09 M/mm3 (4.2-5.4)
[2021-09-27] MEDS: CENTRAL LINE FLUSH 10 ML IV PUSH ×3 (05:13→17:34)
[2021-09-27 05:16] LABS: Alanine Aminotransferase 17 U/L (4-35); Albumin Level 3.9 g/dL (3.5-5.1); Alkaline Phosphatase 81 U/L (38-126); Anion Gap 10 mmol/L (8-16); Aspartate Amino Transferase 28 U/L (14-36); Bilirubin,Total 1.3 mg/dL (0.2-1.3); Blood Urea Nitrogen 41 mg/dL (7-17); Calcium 8.1 mg/dL (8.4-10.2); Carbon Dioxide 30 mmol/L (22-30); Chloride 96 mmol/L (98-107); Estimated CRCL calculation 10 ml/min; Estimated Glomerular Filt Rate 9; Glucose 114 mg/dL (65-110); INR 1.2; Magnesium 2.1 mg/dL (1.6-2.3); Phosphorus 5.9 mg/dL (2.5-4.5); Potassium 3.9 mmol/L (3.4-5.0); Prothrombin Time 14.7 Seconds (11.1-14.7); Sodium 136 mmol/L (137-145)
[2021-09-27] MEDS: IPRATROPIUM BR 0.02% INH SOLN 0.5 MG/2.5 ML VIAL INHALATION (05:26)
[2021-09-27] MEDS: ALBUTEROL SULFATE NEB 2.5 MG/0.5 ML INH INHALATION (05:26)
[2021-09-27 07:20] LABS: Glucose Point of Care 81 mg/dl (65-105)
--- NOTE | 2021-09-27 08:39 | WPDINTPN ---
Progress Note: A&P Assessment and Plan (1) Upper GI bleed: Code(s): K92.2 - Gastrointestinal hemorrhage, unspecified Status: Acute Assessment and Plan: patient's symptoms are consistent with had upper GI bleed although she was coagulopathic with elevated INR from her Coumadin. Coagulopathy was reversed with Kcentra and vitamin K INR at this point is 1.6 monitor hemoglobin which has been stable continue IV PPI q.12 hours GI consulted and patient is scheduled for EGD and colonoscopy today she is NPO (2) Elevated INR: Code(s): R79.1 - Abnormal coagulation profile Status: Acute Assessment and Plan: see above (3) DKA (diabetic ketoacidosis): Code(s): E11.10 - Type 2 diabetes mellitus with ketoacidosis without coma Status: Acute Assessment and Plan: patient appeared to be in DKA on her labs With blood glucose more than 500 and positive beta hydroxybutyrate patient was transferred to ICU and started on IV insulin infusion. Patient was not given any fluids due to end-stage renal disease and congestive heart failure with volume overload yesterday her in anion gap has closed and she has been transition to subcutaneous insulin she was given 1 time dose of Lantus last night since she is NPO (4) Diabetes mellitus: Code(s): E11.9 - Type 2 diabetes mellitus without complications Status: Acute Assessment and Plan: see above her HbA1c was 8.3 (5) Chronic respiratory failure with hypoxia: Code(s): J96.11 - Chronic respiratory failure with hypoxia Status: Chronic Assessment and Plan: patient has chronic respiratory failure and is on 2 L nasal cannula at home likely a combination of congestive heart failure end-stage renal disease and COPD patient does not produce any urine and will need hemodialysis for fluid removal. Nephrology has been consulted for hemodialysis which I anticipate will be tomorrow continue bronchodilators for COPD as patient does not appear in any exacerbation. Chest x-ray shows pulmonary edema she is afebrile with normal WBC count. her procalcitonin was low suggesting against sepsis her UA came back suggestive of UTI. I will start patient on Rocephin and check urine culture (6) COPD (chronic obstructive pulmonary disease): Qualifiers: COPD type: unspecified COPD Qualified Code(s): J44.9 - Chronic obstructive pulmonary disease, unspecified Code(s): J44.9 - Chronic obstructive pulmonary disease, unspecified Status: Chronic Assessment and Plan: see above (7) Congestive heart failure: Qualifiers: Heart failure type: unspecified Heart failure chronicity: unspecified Qualified Code(s): I50.9 - Heart failure, unspecified Code(s): I50.9 - Heart failure, unspecified Status: Chronic Assessment and Plan: hemodialysis to remove fluid. Patient will get her hemodialysis session today echocardiogram was done and showed left and right heart failure systolic, pulmonary hypertension severe, moderate TR 1. Complete two-dimensional, color flow and Doppler transthoracic echocardiogram is performed with contrast to opacify the left ventricle and to improve the deliniation of the left ventricle endocardial borders. 2. Strain analysis performed. 3. Left ventricular chamber dimension is mildly enlarged. 4. Left ventricular systolic function is severely reduced, estimated at 30-35%. 5. There is mildly increased left ventricular wall thickness. 6. The left ventricular diastolic function is abnormal. 7. Global longitudinal strain is abnormal at -10 %. 8. The inferior wall, basal inferolateral wall, and mid inferolateral wall are akinetic. 9. The anterior wall, inferoseptal wall, anterolateral wall, anteroseptal wall, and apical cap are hypokinetic. 10. Left atrial chamber dimension is moderately enlarged. 11. Right atrial chamber dimension is moderatel
--- NOTE | 2021-09-27 08:48 | ECG_ITS ---
Measurements Intervals [place] Rate: 59 P: 91 ME: 223 QRS: -21 QRSD: 111 T: 5 QT: 459 QTc: 457 Interpretive Statements SINUS BRADYCARDIA WITH FIRST DEGREE AV BLOCK VENTRICULAR PREMATURE COMPLEXES BORDERLINE T WAVE ABNORMALITY- DIFFUSE LEADS BASELINE WANDER- V3-V6 ABNORMAL ECG Electronically Signed On 09-27-2021 9:12:23 CDT by Raul Blanco D.O.
[2021-09-27] MEDS: FLUTICASONE/SALMETEROL 115-21 MCG INHALER 1 PUFF 2 PUFF INHALATION ×2 (09:07→20:31)
--- NOTE | 2021-09-27 09:07 | PM.PNNEP ---
Progress Note: A&P Additional Plan 1. End-stage renal disease. This is due to diabetes and hypertension. She probably has some vascular disease as well. She is due for dialysis today. We probably will not take any fluid off. 2. GI bleed. The patient has bright red blood per rectum. She does have a history of diverticulosis. G I, Dr. Kowalski is seeing and is going to do upper and lower scopes. 3. Paroxysmal Atrial fibrillation. She is in sinus at this point in time. Heart rate is good at 60 today. 4. The patient has COPD. She continues to smoke. One week ago she tried vaping and has been doing this for the last week in efforts to try to come off cigarettes altogether. 5. Anemia of chronic kidney disease. She is on Epogen. Hemoglobin is 10.3. No more bleeding. Will order T sats today 6. Diabetes. The patient has DKA. 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 off the insulin drip. 7. Chronic hypotension. Possibly due to her heart. She is on dopamine right now. bp 98 Echo shows a low ejection fraction, diastolic dysfunction, biatrial enlargement moderate tricuspid regurg and severe pulmonary hypertension. 8. The patient has edema. Venous Dopplers are negative. Edema is likely due to her pulmonary hypertension. Subjective Date/time seen: 09/27/21 09:07 Interval history: Irene had a rough night. She was up all night with diarrhea because of her colonoscopy prep. She is breathing comfortably right now. Review of Systems Cardiovascular: Cardiovascular: Reports no additional cardiovascular complaints Respiratory: Respiratory: Reports no additional respiratory complaints Gastrointestinal: Gastrointestinal: Reports no additional gastrointestinal complaints Genitourinary: Genitourinary: Reports no additional female genitourinary complaints Exam Narrative: WDWN in NAD skin no rash head ncat lungs Rare crackles at both bases cor reg no rub abd BS+ nontender and soft ext no edema. Objective Data Vital Signs Vital Signs: Vital Signs - 24 hr 09/26/21 10:00 09/26/21 10:25 09/26/21 12:00 Temperature 36.6 C 36.7 C Pulse Rate 60 60 Respiratory Rate 10 L 10 L Blood Pressure 90/42 L 103/47 L Pulse Oximetry 100 100 98 09/26/21 14:00 09/26/21 16:00 09/26/21 18:00 Temperature 36.6 C 36.7 C 37.2 C Pulse Rate 58 L 63 68 Respiratory Rate 10 L 13 14 Blood Pressure 93/42 L 115/48 L 109/44 L Pulse Oximetry 100 98 100 09/26/21 20:00 09/26/21 20:17 09/26/21 22:00 Temperature 36.4 C L Pulse Rate 64 53 L Respiratory Rate 17 12 Blood Pressure 98/46 L 101/45 L Pulse Oximetry 100 99 100 09/27/21 00:00 09/27/21 01:17 09/27/21 01:53 Temperature 36.4 C L Pulse Rate 59 L 45 L Respiratory Rate 18 Blood Pressure 88/40 L 83/36 L Pulse Oximetry 99 94 09/27/21 02:00 09/27/21 04:00 09/27/21 05:33 Temperature 36.4 C L Pulse Rate 82 75 72 Respiratory Rate 15 19 25 H Blood Pressure 128/47 L 114/43 L Pulse Oximetry 90 97 09/27/21 05:43 09/27/21 06:00 Temperature Pulse Rate 74 49 L Respiratory Rate 22 H 12 Blood Pressure 98/56 L Pulse Oximetry 100 Intake/Output Intake/Output: Intake & Output 09/24/21 09/25/21 09/26/21 09/27/21 23:59 23:59 23:59 23:59 Intake Total 630 2000 Output Total 100 50 Balance 530 1950 Meds/Results Medications: Active Medications Generic Name Dose Route Start Last Admin Trade Name Freq PRN Reason Stop Dose Admin Hydrocodone Bitart/Acetaminophen 1 tab 09/26/21 02:42 09/27/21 05:02 Hydrocodone/Acetaminophen (*Crx) 5-325 Mg Tablet PO 1 tab Q4H PRN Administration Pain (Scale Score 7-10) Albuterol 2.5 mg 09/26/21 07:48 09/27/21 05:26 Albuterol Sulfate Neb 2.5 Mg/0.5 Ml Inh INHALATION 2.5 mg Q4HRT PRN Administration Shortness Of Breath Allopurinol 50 mg 09/26/21 21:00 09/26/21 20:26 Allopurinol 50 Mg Tablet PO 50 mg HS SHERYL Administration Amiodarone HCl
[2021-09-27] MEDS: CHOLECALCIFEROL 1,000 UNITS TABLET 5000 UNITS PO (09:22)
[2021-09-27] MEDS: SILVERGEL (ELTA) 45 ML 1 APPLIC TOPICAL (09:22)
[2021-09-27] MEDS: BRIMONIDINE TARTRATE 0.2% OP SOLN 5 ML BTL 1 DROP EACH EYE (09:22)
[2021-09-27] MEDS: PANTOPRAZOLE SODIUM IV 40 MG VIAL IV PUSH (09:22)
[2021-09-27] MEDS: MIDODRINE HCL 10 MG TABLET PO ×3 (09:22→17:34)
[2021-09-27] MEDS: TIMOLOL MALEATE 0.5% OP SOLN 5 ML BOTTLE 1 DROP EACH EYE (09:24)
--- NOTE | 2021-09-27 11:31 | PCFNICU ---
ICU Rounding Note: Pt current nutrition is NPO. Last recorded weight is 76 kg, up from 74.1 kg on admit. Bowel Motility: +Bm reported 4/5 Labs Reviewed:Glu 114, Cr 4.9,BUN 41, GFR 9, Na 136, Hct 32.0,Hgb 10.1 Meds Noted: Zetia,[place], Lantus,Atrovent,Midodrine,Vit D, Protonix Skin: left heel-dm Additional Notes: Patient remains NPO for EGD/colonoscopy today. Plans for Dialysis at some point today. Will continue to follow for any nutritional interventions needed. Following daily in ICU rounds. Will monitor every 3 days.
[2021-09-27 11:56] LABS: Glucose Point of Care 128 mg/dl (65-105)
--- NOTE | 2021-09-27 13:17 | WPDANESEPPF ---
Anes - Initial Pre Proc Eval Procedure: Operation Date: 09/27/21 14:30 Proposed Procedures p Esophagogastroduodenoscopy & Colonoscopy - Anshu Young MD Date/Time: 09/27/21 13:17 Surgeon: Chapito Weir MD Pre Op Diagnosis: GI Bleed Patient Data Age: 66 Gender: F Height: 1.7 m Weight: 76 kg Last Vital Signs Temp 36.4 C L 09/27/21 04:00 Pulse 73 09/27/21 12:00 Resp 12 09/27/21 06:00 BP 98/56 L 09/27/21 06:00 Pulse Ox 96 09/27/21 09:07 Allergies Allergy/AdvReac Type Severity Reaction Status Date / Time clarithromycin Allergy Severe Anaphylaxis Verified 10/29/20 19:48 levofloxacin Allergy Severe Anaphylaxis Verified 10/29/20 19:48 meperidine Allergy Severe Hives / Verified 10/29/20 19:48 [place] Face metronidazole Allergy Severe Anaphylaxis Verified 10/29/20 19:48 nitrofurantoin Allergy Severe Anaphylaxis Verified 10/29/20 19:48 Quinolones Allergy Severe Anaphylaxis Verified 10/29/20 19:48 celecoxib Allergy Mild Hives Verified 10/29/20 19:48 amoxicillin [From Augmentin] Allergy Diarrhea Verified 09/25/21 21:29 clavulanic acid Allergy Diarrhea Verified 09/25/21 21:29 [From Augmentin] doxycycline Allergy Diarrhea Verified 09/25/21 21:29 Home Medications Medication Instructions Recorded Confirmed Type Basaglar OmarikPen U-100 Insulin 35 unit SUBCUT HS 10/29/20 09/25/21 History allopurinol 50 mg PO HS 10/29/20 09/25/21 History amiodarone [Pacerone] 200 mg PO HS 10/29/20 09/25/21 History aspirin 81 mg PO DAILY 10/29/20 09/25/21 History atorvastatin 40 mg PO HS 10/29/20 09/25/21 History brimonidine-timolol [Combigan] 1 drp EACH EYE BID 10/29/20 09/25/21 History budesonide-formoterol [Symbicort] 2 puff INHALATION BID 10/29/20 09/25/21 History chlorthalidone 25 mg PO PRN PRN 10/29/20 09/25/21 History cholecalciferol (vitamin D3) 125 mcg PO DAILY 10/29/20 09/25/21 History [Vitamin D3] ezetimibe 10 mg PO HS 10/29/20 09/25/21 History furosemide 240 mg PO BID 10/29/20 09/25/21 History hydrocodone-acetaminophen 5 - 325 tablet PO Q4H PRN 10/29/20 09/26/21 History ondansetron 4 mg PO Q8H PRN 10/29/20 09/25/21 History pregabalin 100 mg PO HS 10/29/20 09/25/21 History tramadol 50 mg PO Q12H PRN 10/29/20 09/25/21 History warfarin See Rx Instructions .ROUTE .COMPLEX 10/29/20 09/25/21 History midodrine 10 mg PO QMWF 09/25/21 09/25/21 History Laboratory Tests 09/26/21 09/26/21 09/26/21 12:41 13:39 17:05 WBC RBC Hgb 9.5 g/dL L g/dL (12.0-15.0) Hct 31.0 % L % (37.0-47.0) MCV MCH MCHC RDW Plt Count MPV PT INR Sodium Potassium Chloride Carbon Dioxide Anion Gap BUN Creatinine Estim Creat Clear Calc Estimated GFR Glucose POC Capillary Glucose 175 mg/dl H mg/dl (65-105) Calcium Phosphorus Magnesium Total Bilirubin AST ALT Alkaline Phosphatase Total Protein Albumin Urine Color Jasmine (Yellow) Urine Appearance Cloudy H (Clear) Urine pH 5.0 (5.0-9.0) Ur Specific [place] 1.025 (1.001-1.035) Urine Protein 1+ mg/dL H mg/dL (Negative) Urine Glucose (UA) 2+ mg/dL H mg/dL (Negative) Urine Ketones 1+ mg/dL H mg/dL (Negative) Ur Blood (Man) 2+ H (Negative) Urine Nitrate Negative (Negative) Urine Bilirubin 2+ H (Negative) Urine Urobilinogen 0.2 mg/dL mg/dL (<2.0) Leukocyte Esterase Rfl Trace ALEKSANDRA/UL H ALEKSANDRA/UL (Negative) Urine RBC 0-2 /hpf /hpf (0-2) Urine WBC 16-20 /hpf H /hpf Ur Squamous Epith Cells Many /hpf H /hpf (Few) Uri
[2021-09-27] MEDS: LACTATED RINGERS 1,000 ML 150 ML IV CONT (13:28)
--- NOTE | 2021-09-27 14:03 | SUR.OPER ---
EGD ENDED AT 1358, COLONOSCOPY BEGAN AT 1408.
--- NOTE | 2021-09-27 14:29 | SUR.OPER ---
ASCENDING COLON POLYP NOT RETRIEVED. DR. GRIDER AWARE. NO NEW ORDERS.
[2021-09-27] MEDS: LIDOCAINE 5% PATCH 1 PATCH TRANSDERM (14:48)
--- NOTE | 2021-09-27 15:45 | PM.IMPN ---
Progress Note: A&P Assessment and Plan (1) Upper GI bleed: Code(s): K92.2 - Gastrointestinal hemorrhage, unspecified Status: Acute (2) DKA (diabetic ketoacidosis): Code(s): E11.10 - Type 2 diabetes mellitus with ketoacidosis without coma Status: Acute (3) End stage renal disease on dialysis: Code(s): N18.6 - End stage renal disease; Z99.2 - Dependence on renal dialysis Status: Chronic (4) Type 1 diabetes mellitus: Code(s): E10.9 - Type 1 diabetes mellitus without complications Status: Acute (5) End stage renal disease: Code(s): N18.6 - End stage renal disease Status: Chronic (6) Lower extremity edema: Code(s): R60.0 - Localized edema Status: Acute (7) Pulmonary edema: Code(s): J81.1 - Chronic pulmonary edema Status: Acute (8) Diabetes mellitus: Code(s): E11.9 - Type 2 diabetes mellitus without complications Status: Acute (9) Volume overload: Code(s): E87.70 - Fluid overload, unspecified Status: Acute (10) Elevated INR: Code(s): R79.1 - Abnormal coagulation profile Status: Acute (11) Chronic respiratory failure with hypoxia: Code(s): J96.11 - Chronic respiratory failure with hypoxia Status: Chronic (12) Hypertension: Qualifiers: Hypertension type: essential hypertension Qualified Code(s): I10 - Essential (primary) hypertension Code(s): I10 - Essential (primary) hypertension Status: Chronic (13) Congestive heart failure: Qualifiers: Heart failure type: unspecified Heart failure chronicity: unspecified Qualified Code(s): I50.9 - Heart failure, unspecified Code(s): I50.9 - Heart failure, unspecified Status: Chronic (14) COPD (chronic obstructive pulmonary disease): Qualifiers: COPD type: unspecified COPD Qualified Code(s): J44.9 - Chronic obstructive pulmonary disease, unspecified Code(s): J44.9 - Chronic obstructive pulmonary disease, unspecified Status: Chronic (15) DM2 (diabetes mellitus, type 2): Qualifiers: Diabetes mellitus [facility] insulin use: with technician terminal and repeater use Diabetes mellitus complication status: without complication Qualified Code(s): E11.9 - Type 2 diabetes mellitus without complications; Z79.4 - terminal operations supervisor (current) use of insulin Code(s): E11.9 - Type 2 diabetes mellitus without complications Status: Chronic (16) Atrial flutter: Qualifiers: Atrial flutter type: unspecified Qualified Code(s): I48.92 - Unspecified atrial flutter Code(s): I48.92 - Unspecified atrial flutter Status: Chronic (17) Hyperlipidemia: Qualifiers: Hyperlipidemia type: unspecified Qualified Code(s): E78.5 - Hyperlipidemia, unspecified Code(s): E78.5 - Hyperlipidemia, unspecified Status: Chronic Additional Plan 09/25/21 Gastroenterology has been consult and do appreciate further recommendations. Patient will be kept NPO at this time until seen by GI. Will have a stat CBC performed and then have hemoglobin and hematocrit drawn every 6 hours to monitor closely. Patient's INR outside facility was 11.7. Patient did receive Kcentra as well as vitamin K. Will recheck an INR and continue to monitor. Patient states that her INR is not room this elevated, and the highest she has ever seen is 7.0. Patient states that she was extremely hesitant to receive any reversal agents secondary to being told that she should never receive reversal agents. Patient denies having any valvular replacements and states that she is on Coumadin for atrial fibrillation/flutter. Patient's ventricular rate is well controlled this time. Patient's Coumadin has been placed on hold secondary to GI bleed and elevated INR. Will resume patient's home medications once we have a verified medication list. Nephrology has been consult and appreciate further recommendations. Patient st
[2021-09-27 16:05] LABS: Glucose Point of Care 130 mg/dl (65-105)
[2021-09-27 18:33] LABS: Hepatitis B Surface Antigen Negative (Negative)
[2021-09-27 18:51] LABS: Hepatitis B Surface Anti Res Indeterminate
[2021-09-27 19:01] LABS: Hepatitis B Surface Antigen 0.15 S/C
[2021-09-27 20:28] LABS: Glucose Point of Care 163 mg/dl (65-105)
[2021-09-27] MEDS: SODIUM CHLORIDE 0.9% IV 1,000 ML 999 ML IV CONT ×2 (21:55→21:56)
[2021-09-27] MEDS: EPOETIN ALFA-EPBX 10,000 UNITS/ML VIAL 10000 UNITS IV PUSH (21:55)
[2021-09-28] VITALS (14 sets, daily range): BP systolic 87–140; BP diastolic 38–77; PULSE 66–83; RESP 12–21; TEMP 36.1–36.9; O2SAT 94–100
[2021-09-28] MEDS: PREGABALIN (*CRX) 50 MG CAPSULE 100 MG PO ×2 (00:12→20:48)
[2021-09-28] MEDS: EZETIMIBE 10 MG TABLET PO ×2 (00:12→20:48)
[2021-09-28] MEDS: CENTRAL LINE FLUSH 10 ML IV PUSH ×5 (00:13→17:18)
[2021-09-28] MEDS: allopurinoL 50 MG TABLET PO ×2 (00:13→20:48)
[2021-09-28] MEDS: BRIMONIDINE TARTRATE 0.2% OP SOLN 5 ML BTL 1 DROP EACH EYE ×3 (00:13→20:48)
[2021-09-28] MEDS: ATORVASTATIN 40 MG TABLET PO ×2 (00:13→20:56)
[2021-09-28] MEDS: TIMOLOL MALEATE 0.5% OP SOLN 5 ML BOTTLE 1 DROP EACH EYE ×3 (00:13→20:49)
[2021-09-28 00:20] LABS: Glucose Point of Care 143 mg/dl (65-105)
[2021-09-28 04:20] LABS: Hematocrit 30.4 % (37.0-47.0); Hemoglobin 9.8 g/dL (12.0-15.0); Mean Corpuscular HGB Conc 32.2 g/dl (32-36); Mean Corpuscular Hemoglobin 32.3 pg (26-34); Mean Corpuscular Volume 100.3 fl (80-100); Mean Platelet Volume 11.6 fl (7.4-10.4); Platelet Count Result 155 k/mm3 (150-375); Red Blood Count 3.03 M/mm3 (4.2-5.4); Red Cell Distribution Width 15.9 % (11.5-14.5); White Blood Count 8.4 K/mm3 (4.5-10.0)
[2021-09-28 04:40] LABS: Alanine Aminotransferase 15 U/L (4-35); Albumin Level 3.4 g/dL (3.5-5.1); Alkaline Phosphatase 83 U/L (38-126); Anion Gap 9 mmol/L (8-16); Aspartate Amino Transferase 27 U/L (14-36); Bilirubin,Total 1.3 mg/dL (0.2-1.3); Blood Urea Nitrogen 20 mg/dL (7-17); Calcium 8.1 mg/dL (8.4-10.2); Carbon Dioxide 32 mmol/L (22-30); Chloride 94 mmol/L (98-107); Estimated CRCL calculation 15 ml/min; Estimated Glomerular Filt Rate 14; Glucose 193 mg/dL (65-110); Magnesium 2.1 mg/dL (1.6-2.3); Potassium 3.9 mmol/L (3.4-5.0); Sodium 135 mmol/L (137-145)
[2021-09-28 05:04] LABS: Iron 44 ug/dL (37-170)
[2021-09-28 05:11] LABS: INR 1.1; Prothrombin Time 14.2 Seconds (11.1-14.7)
[2021-09-28 05:14] LABS: Percent Iron Saturation 19 % (20-50)
[2021-09-28 07:57] LABS: Glucose Point of Care 240 mg/dl (65-105)
[2021-09-28] MEDS: FLUTICASONE/SALMETEROL 115-21 MCG INHALER 1 PUFF 2 PUFF INHALATION ×2 (08:05→20:14)
[2021-09-28] MEDS: SILVERGEL (ELTA) 45 ML 1 APPLIC TOPICAL (08:43)
[2021-09-28] MEDS: MIDODRINE HCL 10 MG TABLET PO ×3 (08:44→17:17)
[2021-09-28] MEDS: PANTOPRAZOLE SODIUM IV 40 MG VIAL IV PUSH (08:44)
[2021-09-28] MEDS: CHOLECALCIFEROL 1,000 UNITS TABLET 5000 UNITS PO (08:45)
[2021-09-28] MEDS: INSULIN ASPART (*BKC) 100 UNITS/ML SUB-Q ×4 (08:55→20:55)
[2021-09-28] MEDS: ALBUTEROL SULFATE NEB 2.5 MG/0.5 ML INH INHALATION (09:30)
--- NOTE | 2021-09-28 11:20 | PCNFU ---
Nutrition Follow-Up Complete: Altered GI function as related to GI Bleed as evidenced by NPO Goal: Meet estimated nutritional needs Patient is progressing towards goal. We will continue current goal. Pt current nutrition is DBCC/heart healthy/Renal Dialysis Last recorded weight is 78.2 kg, up from 74.1 kg on admit. Bowel Motility:+BM reported / Labs Reviewed:Glu 193, Cr 3.2,GFR 14, BUN 20, Alb 3.4,Hgb 9.8,Hct 30.4 Meds Noted: Lantus, Vit D, Protonix, Midodrine, [place], Zetia,Lipitor, Rocephin Skin: Left heel-DM ulcer Additional Notes: Spoke with patient today. She is tolerating her current diet order. Refused diet supplements. EGD showing gastritis yesterday. She states to following with Renal Dietitian at outpatient dialysis clinic. No further nutritional needs at this time. Monitoring: Will monitor every 5 days.
--- NOTE | 2021-09-28 11:37 | WPDINTPN ---
Progress Note: A&P Assessment and Plan (1) Upper GI bleed: Code(s): K92.2 - Gastrointestinal hemorrhage, unspecified Status: Acute Assessment and Plan: patient's symptoms are consistent with had upper GI bleed although she was coagulopathic with elevated INR from her Coumadin. Coagulopathy was reversed with Kcentra and vitamin K 5/5 INR is 1.1 monitor hemoglobin which has been stable continue IV PPI q.12 hours 09/27/2021 EGD showed gastritis 09/27/2021 colonoscopy, colonic polyp, diverticulosis without perforation or abscess without bleeding, internal hemorrhoids (2) Elevated INR: Code(s): R79.1 - Abnormal coagulation profile Status: Acute Assessment and Plan: see above (3) DKA (diabetic ketoacidosis): Code(s): E11.10 - Type 2 diabetes mellitus with ketoacidosis without coma Status: Acute Assessment and Plan: patient appeared to be in DKA on her labs With blood glucose more than 500 and positive beta hydroxybutyrate patient was transferred to ICU and started on IV insulin infusion. Patient was not given any fluids due to end-stage renal disease and congestive heart failure with volume overload Patient has been transition to long-acting insulin and sliding scale insulin on 09/27/2021 -continue Lantus, diabetic diet -hemoglobin A1c is 8.3 (4) Diabetes mellitus: Code(s): E11.9 - Type 2 diabetes mellitus without complications Status: Acute Assessment and Plan: see above her HbA1c was 8.3 (5) Chronic respiratory failure with hypoxia: Code(s): J96.11 - Chronic respiratory failure with hypoxia Status: Chronic Assessment and Plan: patient has chronic respiratory failure and is on 2 L nasal cannula at home likely a combination of congestive heart failure end-stage renal disease and COPD patient does not produce any urine and will need hemodialysis for fluid removal. - Nephrology has been consulted for hemodialysis, HD was done on 09/27 with 3000 mL fluid removal continue bronchodilators for COPD as patient does not appear in any exacerbation. -chest x-ray shows congestive changes she is afebrile with normal WBC count. her procalcitonin was low suggesting against sepsis her UA came back suggestive of UTI. I will start patient on Rocephin , urine culture is negative (6) COPD (chronic obstructive pulmonary disease): Qualifiers: COPD type: unspecified COPD Qualified Code(s): J44.9 - Chronic obstructive pulmonary disease, unspecified Code(s): J44.9 - Chronic obstructive pulmonary disease, unspecified Status: Chronic Assessment and Plan: see above (7) Congestive heart failure: Qualifiers: Heart failure type: unspecified Heart failure chronicity: unspecified Qualified Code(s): I50.9 - Heart failure, unspecified Code(s): I50.9 - Heart failure, unspecified Status: Chronic Assessment and Plan: hemodialysis to remove fluid. Patient will get her hemodialysis session today echocardiogram was done and showed left and right heart failure systolic, pulmonary hypertension severe, moderate TR 1. Complete two-dimensional, color flow and Doppler transthoracic echocardiogram is performed with contrast to opacify the left ventricle and to improve the deliniation of the left ventricle endocardial borders. 2. Strain analysis performed. 3. Left ventricular chamber dimension is mildly enlarged. 4. Left ventricular systolic function is severely reduced, estimated at 30-35%. 5. There is mildly increased left ventricular wall thickness. 6. The left ventricular diastolic function is abnormal. 7. Global longitudinal strain is abnormal at -10 %. 8. The inferior wall, basal inferolateral wall, and mid inferolateral wall are akinetic. 9. The anterior wall, inferoseptal wall, anterolateral wall, anteroseptal wall, and apical cap are hypokinetic. 10. Left atrial chamber dimen
--- NOTE | 2021-09-28 11:39 | PM.PNNEP ---
Progress Note: A&P Additional Plan 1. End-stage renal disease. This is due to diabetes and hypertension. She probably has some vascular disease as well. She had dialysis yesterday. Will try to remove more fluid tomorrow. 2. GI bleed. Colonoscopy showed polyps and diverticulosis without bleeding. EGD showed gastritis only. No more signs of bleeding. G I, Dr. Kowalski is seeing 3. Paroxysmal Atrial fibrillation. She is in sinus at this point in time. Heart rate is good at 60 today. 4. The patient has COPD. She continues to smoke. One week ago she tried vaping and has been doing this for the last week in efforts to try to come off cigarettes altogether. 5. Anemia of chronic kidney disease. She is on Epogen. Hemoglobin is 9.8. No more bleeding. T sat 19. Ferritin 88. Will start Venofer. She will get EPO tomorrow 6. Diabetes. The patient has DKA. This is being managed by the home therapy teacher. off the insulin drip. 7. Chronic hypotension. Possibly due to her heart. She is on dopamine right now at 2mcg. bp 111 now Echo shows a low ejection fraction, diastolic dysfunction, biatrial enlargement moderate tricuspid regurg and severe pulmonary hypertension. 8. The patient has edema. Venous Dopplers are negative. Edema is likely due to her pulmonary hypertension. Subjective Date/time seen: 09/28/21 11:39 Interval history: Irene Feels much better. She had dialysis yesterday removed about 3L. Breathing much better. Exam Narrative: WDWN in NAD skin no rash or subcu nodules head ncat lungs Rare crackles at both bases cor reg no rub or gallop abd BS+ nontender and soft ext no edema. Objective Data Vital Signs Vital Signs: Vital Signs - 24 hr 09/27/21 12:00 09/27/21 14:00 09/27/21 16:00 Temperature 36.7 C 36.6 C 36.4 C Pulse Rate 73 72 68 Respiratory Rate 12 20 11 L Blood Pressure 116/67 113/57 L 123/51 L Pulse Oximetry 92 92 97 09/27/21 18:00 09/27/21 18:44 09/27/21 20:00 Temperature 36.8 C 36.8 C Pulse Rate 107 H 60 76 Respiratory Rate 24 H 18 Blood Pressure 98/42 L 88/44 L 132/94 H Pulse Oximetry 100 100 05/04/22 20:18 09/27/21 20:30 09/27/21 20:33 Temperature Pulse Rate 80 79 Respiratory Rate Blood Pressure 132/94 H 129/61 Pulse Oximetry 99 09/27/21 20:45 09/27/21 21:00 09/27/21 21:15 Temperature Pulse Rate 80 80 79 Respiratory Rate Blood Pressure 142/62 H 145/63 H 134/58 L Pulse Oximetry 09/27/21 21:30 09/27/21 21:45 09/27/21 22:00 Temperature Pulse Rate 73 75 78 Respiratory Rate 13 Blood Pressure 116/48 L 106/56 L 138/61 Pulse Oximetry 100 09/27/21 22:15 09/27/21 22:30 09/27/21 22:45 Temperature Pulse Rate 80 77 79 Respiratory Rate Blood Pressure 139/58 L 140/53 L 127/64 Pulse Oximetry 09/27/21 23:00 09/27/21 23:15 09/27/21 23:21 Temperature Pulse Rate 75 79 79 Respiratory Rate Blood Pressure 124/58 L 125/55 L 123/58 L Pulse Oximetry 09/27/21 23:45 09/28/21 00:00 09/28/21 02:00 Temperature 36.9 C 36.4 C Pulse Rate 85 83 72 Respiratory Rate 14 15 19 Blood Pressure 121/55 L 140/55 L 115/38 L Pulse Oximetry 100 100 99 09/28/21 04:00 09/28/21 06:00 09/28/21 08:00 Temperature 36.9 C 36.8 C Pulse Rate 73 66 68 Respiratory Rate 14 16 12 Blood Pressure 107/46 L 110/45 L 106/77 Pulse Oximetry 95 100 100 09/28/21 08:29 09/28/21 09:10 Temperature Pulse Rate 69 73 Respiratory Rate Blood Pressure 111/50 L Pulse Oximetry 100 Intake/Output Intake/Output: Intake & Output 09/25/21 09/26/21 09/27/21 09/28/21 23:59 23:59 23:59 23:59 Intake Total 630 2100 360 Output Total 100 3050 200 Balance 530 -950 160 Meds/Results Medications: Active Medications Generic Name Dose Route Start Last Admin Trade Name Freq PRN Reason Stop Dose Admin Hydrocodone Bitart/Acetaminophen 1 tab 09/26/21 02:42 09/27/21 09:20 Hydroc
[2021-09-28 12:22] LABS: Glucose Point of Care 309 mg/dl (65-105)
[2021-09-28 16:09] LABS: Glucose Point of Care 326 mg/dl (65-105)
--- NOTE | 2021-09-28 16:40 | WPDGIPROGNO ---
Progress Note: A&P Assessment and Plan (1) GI bleed: Code(s): K92.2 - Gastrointestinal hemorrhage, unspecified Status: Acute Assessment and Plan: resolved, no more signs of bleeding and wonder if could have been diverticular source h/h stable inr was reversed with vit k and Kcentra (2) Coagulopathy: Code(s): D68.9 - Coagulation defect, unspecified Status: Acute Assessment and Plan: treated, not longer on coumadin (3) Acute blood loss anemia: Code(s): D62 - Acute posthemorrhagic anemia Status: Acute Assessment and Plan: stable after blood transfusion, no more bleeding (4) DKA (diabetic ketoacidosis): Code(s): E11.10 - Type 2 diabetes mellitus with ketoacidosis without coma Status: Acute Assessment and Plan: resolved (5) Diverticulosis: Code(s): K57.90 - Diverticulosis of intestine, part unspecified, without perforation or abscess without bleeding Status: Chronic Assessment and Plan: probably source of bleeding also removed colon polyp, colonoscopy in 5 years (6) End stage renal disease on dialysis: Code(s): N18.6 - End stage renal disease; Z99.2 - Dependence on renal dialysis Status: Chronic Assessment and Plan: by nephrology, on dialysis Subjective Date/time seen: 09/28/21 16:40 Interval history: egd negative without bleeding, colonoscopy with diverticulosis ? source of previous bleeding, also polyp removed. No more signs of bleeding, in fact no BM since scopes yesterday with stable hb Review of Systems Review of Systems: All systems reviewed & are unremarkable except as noted in HPI and below Exam Const: General: comfortable and no acute distress HENMT: General nose exam: Normal nares present Eyes: General: appearance normal, both eyes and all related structures Neck: Neck: no JVD Resp: Auscultation: clear to auscultation bilaterally Cardio: Rate: regular rate Rhythm: regular rhythm GI: Inspection: non-distended GI Palp: Yes Soft to palpation Skin: General skin exam: normal color Neuro: Speech: normal speech Extrem: General: normal to inspection Psych: Mental Status: mental status grossly normal Objective Data Vital Signs Vital Signs: Vital Signs - 24 hr 09/27/21 18:00 09/27/21 18:44 09/27/21 20:00 Temperature 98.3 F 98.2 F Pulse Rate 107 H 60 76 Respiratory Rate 24 H 18 Blood Pressure 98/42 L 88/44 L 132/94 H Pulse Oximetry 100 100 09/27/21 20:18 09/27/21 20:30 09/27/21 20:33 Temperature Pulse Rate 80 79 Respiratory Rate Blood Pressure 132/94 H 129/61 Pulse Oximetry 99 09/27/21 20:45 09/27/21 21:00 09/27/21 21:15 Temperature Pulse Rate 80 80 79 Respiratory Rate Blood Pressure 142/62 H 145/63 H 134/58 L Pulse Oximetry 09/27/21 21:30 09/27/21 21:45 09/27/21 22:00 Temperature Pulse Rate 73 75 78 Respiratory Rate 13 Blood Pressure 116/48 L 106/56 L 138/61 Pulse Oximetry 100 09/27/21 22:15 09/27/21 22:30 09/27/21 22:45 Temperature Pulse Rate 80 77 79 Respiratory Rate Blood Pressure 139/58 L 140/53 L 127/64 Pulse Oximetry 09/27/21 23:00 09/27/21 23:15 09/27/21 23:21 Temperature Pulse Rate 75 79 79 Respiratory Rate Blood Pressure 124/58 L 125/55 L 123/58 L Pulse Oximetry 09/27/21 23:45 09/28/21 00:00 09/28/21 02:00 Temperature 98.4 F 97.6 F Pulse Rate 85 83 72 Respiratory Rate 14 15 19 Blood Pressure 121/55 L 140/55 L 115/38 L Pulse Oximetry 100 100 99 09/28/21 04:00 09/28/21 06:00 09/28/21 08:00 Temperature 98.5 F 98.3 F Pulse Rate 73 66 68 Respiratory Rate 14 16 12 Blood Pressure 107/46 L 110/45 L 106/77 Pulse Oximetry 95 100 100 09/28/21 08:29 09/28/21 09:10 09/28/21 10:00 Temperature Pulse Rate 69 73 70 Respiratory Rate 17 Blood Pressure 111/50 L 112/41 L Pulse Oximetry 100 97 09/28/21 12:00 09/28/21 14:00 09/28/21 16:00 Temperature 98 F Pu
[2021-09-28 17:31] LABS: Lactic Acid Reflex 1.6 mmol/L (0.7-2.0)
--- NOTE | 2021-09-28 18:21 | PM.IMPN ---
Progress Note: A&P Assessment and Plan (1) Upper GI bleed: Code(s): K92.2 - Gastrointestinal hemorrhage, unspecified Status: Acute (2) DKA (diabetic ketoacidosis): Code(s): E11.10 - Type 2 diabetes mellitus with ketoacidosis without coma Status: Acute (3) End stage renal disease on dialysis: Code(s): N18.6 - End stage renal disease; Z99.2 - Dependence on renal dialysis Status: Chronic (4) Type 1 diabetes mellitus: Code(s): E10.9 - Type 1 diabetes mellitus without complications Status: Acute (5) End stage renal disease: Code(s): N18.6 - End stage renal disease Status: Chronic (6) Lower extremity edema: Code(s): R60.0 - Localized edema Status: Acute (7) Pulmonary edema: Code(s): J81.1 - Chronic pulmonary edema Status: Acute (8) Diabetes mellitus: Code(s): E11.9 - Type 2 diabetes mellitus without complications Status: Acute (9) Volume overload: Code(s): E87.70 - Fluid overload, unspecified Status: Acute (10) Elevated INR: Code(s): R79.1 - Abnormal coagulation profile Status: Acute (11) Chronic respiratory failure with hypoxia: Code(s): J96.11 - Chronic respiratory failure with hypoxia Status: Chronic (12) Hypertension: Qualifiers: Hypertension type: essential hypertension Qualified Code(s): I10 - Essential (primary) hypertension Code(s): I10 - Essential (primary) hypertension Status: Chronic (13) Congestive heart failure: Qualifiers: Heart failure type: unspecified Heart failure chronicity: unspecified Qualified Code(s): I50.9 - Heart failure, unspecified Code(s): I50.9 - Heart failure, unspecified Status: Chronic (14) COPD (chronic obstructive pulmonary disease): Qualifiers: COPD type: unspecified COPD Qualified Code(s): J44.9 - Chronic obstructive pulmonary disease, unspecified Code(s): J44.9 - Chronic obstructive pulmonary disease, unspecified Status: Chronic (15) DM2 (diabetes mellitus, type 2): Qualifiers: Diabetes mellitus correction insulin use: with director long term care use Diabetes mellitus complication status: without complication Qualified Code(s): E11.9 - Type 2 diabetes mellitus without complications; Z79.4 - intermediate frame tender (current) use of insulin Code(s): E11.9 - Type 2 diabetes mellitus without complications Status: Chronic (16) Atrial flutter: Qualifiers: Atrial flutter type: unspecified Qualified Code(s): I48.92 - Unspecified atrial flutter Code(s): I48.92 - Unspecified atrial flutter Status: Chronic (17) Hyperlipidemia: Qualifiers: Hyperlipidemia type: unspecified Qualified Code(s): E78.5 - Hyperlipidemia, unspecified Code(s): E78.5 - Hyperlipidemia, unspecified Status: Chronic Additional Plan 09/25/21 Gastroenterology has been consult and do appreciate further recommendations. Patient will be kept NPO at this time until seen by GI. Will have a stat CBC performed and then have hemoglobin and hematocrit drawn every 6 hours to monitor closely. Patient's INR outside facility was 11.7. Patient did receive Kcentra as well as vitamin K. Will recheck an INR and continue to monitor. Patient states that her INR is not room this elevated, and the highest she has ever seen is 7.0. Patient states that she was extremely hesitant to receive any reversal agents secondary to being told that she should never receive reversal agents. Patient denies having any valvular replacements and states that she is on Coumadin for atrial fibrillation/flutter. Patient's ventricular rate is well controlled this time. Patient's Coumadin has been placed on hold secondary to GI bleed and elevated INR. Will resume patient's home medications once we have a verified medication list. Nephrology has been consult and appreciate further recommendations. Patient st
[2021-09-28] MEDS: INSULIN GLARGINE (*BKC) 100 UNITS/ML 20 UNITS SUB-Q (20:57)
[2021-09-28 21:08] LABS: Glucose Point of Care 420 mg/dl (65-105)
[2021-09-29] VITALS (13 sets, daily range): BP systolic 87–118; BP diastolic 33–95; PULSE 41–80; RESP 14–20; TEMP 36.3–37; O2SAT 94–100; BMI 27.8
[2021-09-29] MEDS: ONDANSETRON INJ 4 MG/2 ML VIAL IV PUSH (00:50)
[2021-09-29] MEDS: INSULIN ASPART (*BKC) 100 UNITS/ML SUB-Q (00:50)
[2021-09-29 00:57] LABS: Glucose Point of Care 221 mg/dl (65-105)
--- NOTE | 2021-09-29 01:48 | PC.NURSE ---
Patient got up from bed and walked around to the opposite side of her room, bent over her trash and looked for her menu and moved her side table by herself with no adverse events noted. She stated that she had a hard time walking but my obsevation did not show any distress from patient.
[2021-09-29] MEDS: DEXTROSE 50% 25 GM/50 ML SYRINGE IV PUSH (04:22)
[2021-09-29 04:28] LABS: Glucose Point of Care 55 mg/dl (65-105)
[2021-09-29 04:28] LABS: Glucose Point of Care 55 mg/dl (65-105)
[2021-09-29 04:32] LABS: Basophils Percent Auto 0.7 % (0.2-1.2); Eosinophils Absolute Auto 0.1 K/mm3 (0-0.3); Eosinophils Percent Auto 1.8 % (0-4.4); Hematocrit 29.7 % (37.0-47.0); Hemoglobin 9.2 g/dL (12.0-15.0); Immature Granulocyte Absolute 0.03 K/mm3 (0.00-0.031); Immature Granulocyte Percent A 0.5 % (0-0.5); Lymphocytes Absolute Auto 1.15 K/mm3 (0.9-3.2); Lymphocytes Percent Auto 20.6 % (18.3-44.2); Mean Corpuscular Hemoglobin 31.9 pg (26-34); Mean Corpuscular Volume 103.1 fl (80-100); Mean Platelet Volume 11.8 fl (7.4-10.4); Monocytes Absolute Auto 0.7 K/mm3 (0.1-0.6); Monocytes Percent Auto 12.2 % (2.6-8.5); Neutrophils Absolute Auto 3.6 K/mm3 (1.3-6.7); Neutrophils Percent Auto 64.2 % (45.5-73.1); Platelet Count Result 147 k/mm3 (150-375); Red Blood Count 2.88 M/mm3 (4.2-5.4); White Blood Count 5.6 K/mm3 (4.5-10.0)
--- NOTE | 2021-09-29 04:36 | PC.NURSE ---
Patient is getting her blood sugar checked every 4 hours and received insulin per protocol. She states that she is extremely sensitive to insulin and does not give herself doses at night, at home because she drops her levels drastically. Her level at this time decreased to 55 and she was treated per protocol. I informed the charger and will recheck the patient in one hour. She is alert and oriented x4 but is nauseas.
[2021-09-29 04:41] LABS: Lactic Acid Reflex 1.5 mmol/L (0.7-2.0)
[2021-09-29 04:44] LABS: INR 1.2; Prothrombin Time 14.4 Seconds (11.1-14.7)
[2021-09-29 04:45] LABS: Alanine Aminotransferase 15 U/L (4-35); Albumin Level 3.2 g/dL (3.5-5.1); Alkaline Phosphatase 76 U/L (38-126); Anion Gap 9 mmol/L (8-16); Aspartate Amino Transferase 24 U/L (14-36); Bilirubin,Total 0.7 mg/dL (0.2-1.3); Blood Urea Nitrogen 34 mg/dL (7-17); Calcium 8.2 mg/dL (8.4-10.2); Carbon Dioxide 31 mmol/L (22-30); Chloride 93 mmol/L (98-107); Estimated CRCL calculation 11 ml/min; Estimated Glomerular Filt Rate 9; Glucose 51 mg/dL (65-110); Magnesium 2.6 mg/dL (1.6-2.3); Phosphorus 4.3 mg/dL (2.5-4.5); Potassium 3.7 mmol/L (3.4-5.0); Sodium 133 mmol/L (137-145)
[2021-09-29 05:25] LABS: Glucose Point of Care 128 mg/dl (65-105)
[2021-09-29] MEDS: CENTRAL LINE FLUSH 10 ML IV PUSH (05:30)
[2021-09-29 08:24] LABS: Glucose Point of Care 150 mg/dl (65-105)
[2021-09-29] MEDS: IRON SUCROSE COMPLEX 200 MG in SODIUM CHLORIDE 0.9% IV 50 ML 120 MG IVPB (09:08)
[2021-09-29] MEDS: PANTOPRAZOLE SODIUM IV 40 MG VIAL IV PUSH (09:09)
[2021-09-29] MEDS: TIMOLOL MALEATE 0.5% OP SOLN 5 ML BOTTLE 1 DROP EACH EYE (09:09)
[2021-09-29] MEDS: MIDODRINE HCL 10 MG TABLET PO ×2 (09:09→16:51)
[2021-09-29] MEDS: BRIMONIDINE TARTRATE 0.2% OP SOLN 5 ML BTL 1 DROP EACH EYE (09:09)
[2021-09-29] MEDS: CHOLECALCIFEROL 1,000 UNITS TABLET 5000 UNITS PO (09:09)
[2021-09-29] MEDS: LIDOCAINE 5% PATCH 1 PATCH TRANSDERM (09:10)
[2021-09-29] MEDS: SILVERGEL (ELTA) 45 ML 1 APPLIC TOPICAL (09:10)
--- NOTE | 2021-09-29 10:23 | PM.PNNEP ---
Progress Note: A&P Additional Plan 1. End-stage renal disease. This is due to diabetes and hypertension. She probably has some vascular disease as well. She is due for dialysis today. Will try to remove more fluid 2. GI bleed. Colonoscopy showed polyps and diverticulosis without bleeding. EGD showed gastritis only. No more signs of bleeding. G Jeramie, Dr. Kowalski is seeing 3. Paroxysmal Atrial fibrillation. She is in sinus at this point in time. Heart rate is good at 80 today. 4. The patient has COPD. She continues to smoke. One week ago she tried vaping and has been doing this for the last week in efforts to try to come off cigarettes altogether. 5. Anemia of chronic kidney disease. She is on Epogen. Hemoglobin is 9.2. No more bleeding. T sat 19. Ferritin 88. Will start Venofer. She will get EPO today 6. Diabetes. The patient has DKA. This is being managed by the attending radiologist. off the insulin drip. 7. Chronic hypotension. Possibly due to her heart. She is off dopamine. Echo shows a low ejection fraction, diastolic dysfunction, biatrial enlargement moderate tricuspid regurg and severe pulmonary hypertension. 8. The patient has edema. Venous Dopplers are negative. Edema is likely due to her pulmonary hypertension. Subjective Date/time seen: 09/29/21 10:23 Interval history: Irene is feeling okay. She is eager for discharge. They are going to start her dialysis in about an hour or so. Exam Narrative: WDWN in NAD skin no rash or subcu nodules head ncat lungs Rare crackles at both bases cor reg no rub or gallop abd BS+ nontender and soft ext no edema or cyanosis Objective Data Vital Signs Vital Signs: Vital Signs - 24 hr 09/28/21 12:00 09/28/21 14:00 09/28/21 16:00 Temperature 36.6 C Pulse Rate 66 66 79 Respiratory Rate 17 17 21 H Blood Pressure 87/41 L 87/41 L 111/41 L Pulse Oximetry 100 100 98 09/28/21 18:00 09/28/21 20:00 09/28/21 20:15 Temperature 36.1 C L Pulse Rate 77 80 Respiratory Rate 14 14 Blood Pressure 112/39 L Pulse Oximetry 97 94 98 09/29/21 08:00 Temperature Pulse Rate 80 Respiratory Rate 14 Blood Pressure Pulse Oximetry 94 Intake/Output Intake/Output: Intake & Output 09/26/21 09/27/21 09/28/21 09/29/21 23:59 23:59 23:59 23:59 Intake Total 630 2100 790 100 Output Total 100 3050 205 0 Balance 530 -950 585 100 Meds/Results Medications: Active Medications Generic Name Dose Route Start Last Admin Trade Name Freq PRN Reason Stop Dose Admin Hydrocodone Bitart/Acetaminophen 1 tab 09/26/21 02:42 09/27/21 09:20 Hydrocodone/Acetaminophen (*Crx) 5-325 Mg Tablet PO 1 tab Q4H PRN Administration Pain (Scale Score 7-10) Albuterol 2.5 mg 09/26/21 07:48 09/28/21 09:30 Albuterol Sulfate Neb 2.5 Mg/0.5 Ml Inh INHALATION 2.5 mg Q4HRT PRN Administration Shortness Of Breath Allopurinol 50 mg 09/26/21 21:00 09/28/21 20:48 Allopurinol 50 Mg Tablet PO 50 mg HS SHERYL Administration Atorvastatin Calcium 40 mg 09/26/21 21:00 09/28/21 20:56 Atorvastatin 40 Mg Tablet PO 40 mg HS SHERYL Administration Brimonidine Tartrate 1 drop 09/26/21 09:00 09/29/21 09:09 Brimonidine Tartrate 0.2% Op Soln 5 Ml Btl EACH EYE 1 drop Q12HR SHERYL Administration Dextrose 12.5 gm 09/26/21 00:10 09/29/21 04:22 Dextrose 50% 25 Gm/50 Ml Syringe IV PUSH 12.5 gm PRN PRN Administration Hypoglycemia Protocol Ezetimibe 10 mg 09/26/21 21:00 09/28/21 20:48 Ezetimibe 10 Mg Tablet PO 10 mg HS SHERYL Administration Epoetin Bobby-epbx 10,000 units 09/27/21 07:15 09/27/21 21:55 Epoetin Bobby-Epbx 10,000 Units/Ml Vial IV PUSH 10,000 units MOWEFR SHERYL Administration Glucagon 1 mg 09/26/21 00:10 Glucagon For Inj 1 Mg Vial IM PRN PRN Hypoglycemia Protocol Glucose 15 gm 09/26/21 00:10 Glucose Oral Gel 15 Gm Of Glucse In 37.5
--- NOTE | 2021-09-29 13:11 | PM.IMPN ---
Progress Note: A&P Assessment and Plan (1) Upper GI bleed: Code(s): K92.2 - Gastrointestinal hemorrhage, unspecified Status: Acute Assessment and Plan: patient's symptoms are consistent with had upper GI bleed although she was coagulopathic with elevated INR from her Coumadin. Coagulopathy was reversed with Kcentra and vitamin K 5/5 INR is 1.1 monitor hemoglobin which has been stable continue IV PPI q.12 hours 09/27/2021 EGD showed gastritis 09/27/2021 colonoscopy, colonic polyp, diverticulosis without perforation or abscess without bleeding, internal hemorrhoids (2) Elevated INR: Code(s): R79.1 - Abnormal coagulation profile Status: Acute Assessment and Plan: see above (3) DKA (diabetic ketoacidosis): Code(s): E11.10 - Type 2 diabetes mellitus with ketoacidosis without coma Status: Acute Assessment and Plan: RESOLVED -currently on Lantus -hemoglobin A1c is 8.3 (4) Diabetes mellitus: Code(s): E11.9 - Type 2 diabetes mellitus without complications Status: Acute Assessment and Plan: see above her HbA1c was 8.3 (5) Chronic respiratory failure with hypoxia: Code(s): J96.11 - Chronic respiratory failure with hypoxia Status: Chronic Assessment and Plan: patient has chronic respiratory failure and is on 2 L nasal cannula at home likely a combination of congestive heart failure end-stage renal disease and COPD patient does not produce any urine and will need hemodialysis for fluid removal. - Nephrology has been consulted for hemodialysis, HD was done on 09/27 with 3000 mL fluid removal continue bronchodilators for COPD as patient does not appear in any exacerbation. she is afebrile with normal WBC count. her procalcitonin was low suggesting against sepsis her UA came back suggestive of UTI. Continue ceftriaxone for total of 5 days (6) COPD (chronic obstructive pulmonary disease): Qualifiers: COPD type: unspecified COPD Qualified Code(s): J44.9 - Chronic obstructive pulmonary disease, unspecified Code(s): J44.9 - Chronic obstructive pulmonary disease, unspecified Status: Chronic Assessment and Plan: see above (7) Congestive heart failure: Qualifiers: Heart failure type: unspecified Heart failure chronicity: unspecified Qualified Code(s): I50.9 - Heart failure, unspecified Code(s): I50.9 - Heart failure, unspecified Status: Chronic Assessment and Plan: hemodialysis to remove fluid. Patient will get her hemodialysis session today echocardiogram was done and showed left and right heart failure systolic, pulmonary hypertension severe, moderate TR 1. Complete two-dimensional, color flow and Doppler transthoracic echocardiogram is performed with contrast to opacify the left ventricle and to improve the deliniation of the left ventricle endocardial borders. 2. Strain analysis performed. 3. Left ventricular chamber dimension is mildly enlarged. 4. Left ventricular systolic function is severely reduced, estimated at 30-35%. 5. There is mildly increased left ventricular wall thickness. 6. The left ventricular diastolic function is abnormal. 7. Global longitudinal strain is abnormal at -10 %. 8. The inferior wall, basal inferolateral wall, and mid inferolateral wall are akinetic. 9. The anterior wall, inferoseptal wall, anterolateral wall, anteroseptal wall, and apical cap are hypokinetic. 10. Left atrial chamber dimension is moderately enlarged. 11. Right atrial chamber dimension is moderately enlarged. 12. There is mild mitral valve regurgitation. 13. There is mild aortic valve regurgitation. 14. There is moderate tricuspid valve regurgitation. 15. Severe pulmonary hypertension, estimated pulmonary arterial systolic pressure is 67 mmHg. 16. There is mild pulmonic regurgitation. (8) End stage renal disease on dialysis: Code(s):
[2021-09-29 14:09] LABS: Glucose Point of Care 159 mg/dl (65-105)
[2021-09-29 16:54] LABS: Glucose Point of Care 216 mg/dl (65-105)
--- NOTE | 2021-09-29 17:00 | WPDGIPROGNO ---
Progress Note: A&P Assessment and Plan (1) GI bleed: Code(s): K92.2 - Gastrointestinal hemorrhage, unspecified Status: Acute Assessment and Plan: resolved, no more signs of bleeding and wonder if could have been diverticular source in setting of coumadin toxicity (only new medication was tramadol) h/h stable inr was reversed with vit k and Kcentra she can go home by gi standpoint also ok to resume coumadin but obviously will need to be monitored closely with goal inr 2-3 (2) Coagulopathy: Code(s): D68.9 - Coagulation defect, unspecified Status: Acute Assessment and Plan: resovled (3) Acute blood loss anemia: Code(s): D62 - Acute posthemorrhagic anemia Status: Acute Assessment and Plan: stable after blood transfusion, no more bleeding (4) DKA (diabetic ketoacidosis): Code(s): E11.10 - Type 2 diabetes mellitus with ketoacidosis without coma Status: Acute Assessment and Plan: resolved (5) Diverticulosis: Code(s): K57.90 - Diverticulosis of intestine, part unspecified, without perforation or abscess without bleeding Status: Chronic Assessment and Plan: probably source of bleeding also removed colon polyp, colonoscopy in 5 years (6) End stage renal disease on dialysis: Code(s): N18.6 - End stage renal disease; Z99.2 - Dependence on renal dialysis Status: Chronic Assessment and Plan: by nephrology, on dialysis Subjective Date/time seen: 09/29/21 17:00 Interval history: doing well, in fact she is going home tonight Review of Systems Review of Systems: All systems reviewed & are unremarkable except as noted in HPI and below Exam Const: General: comfortable and no acute distress HENMT: General nose exam: Normal nares present Eyes: General: appearance normal, both eyes and all related structures Neck: Neck: no JVD Resp: Auscultation: clear to auscultation bilaterally Cardio: Rate: regular rate Rhythm: regular rhythm GI: Inspection: non-distended GI Palp: Yes Soft to palpation Skin: General skin exam: normal color Neuro: Speech: normal speech Extrem: General: normal to inspection Psych: Mental Status: mental status grossly normal Objective Data Vital Signs Vital Signs: Vital Signs - 24 hr 09/28/21 20:00 09/28/21 20:15 09/29/21 08:00 Temperature 96.9 F L 97.3 F L Pulse Rate 80 60 Respiratory Rate 14 15 Blood Pressure 112/39 L 100/50 L Pulse Oximetry 94 98 100 09/29/21 11:30 09/29/21 11:50 09/29/21 12:00 Temperature Pulse Rate 41 L 62 63 Respiratory Rate Blood Pressure 106/45 L 108/52 L 89/56 L Pulse Oximetry 09/29/21 12:20 09/29/21 12:40 09/29/21 13:00 Temperature Pulse Rate 63 65 65 Respiratory Rate Blood Pressure 94/44 L 87/37 L 89/33 L Pulse Oximetry 09/29/21 13:20 09/29/21 13:40 09/29/21 13:51 Temperature 97.3 F L Pulse Rate 66 68 64 Respiratory Rate 18 Blood Pressure 108/47 L 110/66 88/44 L Pulse Oximetry 09/29/21 14:13 09/29/21 15:35 Temperature 97.3 F L Pulse Rate 64 67 Respiratory Rate 20 Blood Pressure 118/57 L 113/95 H Pulse Oximetry Intake/Output Intake/Output: Intake & Output 09/26/21 09/27/21 09/28/21 09/29/21 23:59 23:59 23:59 23:59 Intake Total 630 2100 790 580 Output Total 100 3050 205 1000 Balance 530 -950 585 -420 Meds/Results Radiology Results: ITS Impressions Venous Doppler Study 09/26/21 09:45 IMPRESSION: 1. No deep venous thrombosis in either lower limb. Chest X-Ray 09/27/21 07:15 IMPRESSION: 1. Likely congestive heart failure with mild cardiomegaly and diffuse mild pulmonary edema. Labs Labs: Laboratory Results - last 24 hr 09/28/21 09/29/21 09/29/21 20:41 00:46 04:16 WBC RBC Hgb Hct MCV MCH MCHC RDW Plt Count MPV Immature Gran % (Auto) Neut % (Auto) Lymph % (Auto) [place] % (Auto) Eos % (Auto)
--- NOTE | 2021-09-29 17:15 | PM.DS ---
DS: Admitting Diagnosis Discharge Date 09/29/21 Admitting Diagnosis (1) GI bleed: Code(s): K92.2 - Gastrointestinal hemorrhage, unspecified Status: Acute (2) Elevated INR: Code(s): R79.1 - Abnormal coagulation profile Status: Acute (3) Atrial flutter: Qualifiers: Atrial flutter type: unspecified Qualified Code(s): I48.92 - Unspecified atrial flutter Code(s): I48.92 - Unspecified atrial flutter Status: Chronic (4) End stage renal disease on dialysis: Code(s): N18.6 - End stage renal disease; Z99.2 - Dependence on renal dialysis Status: Chronic DS: Discharge Diagnosis Discharge Diagnosis (1) Upper GI bleed: Code(s): K92.2 - Gastrointestinal hemorrhage, unspecified Status: Acute (2) DKA (diabetic ketoacidosis): Code(s): E11.10 - Type 2 diabetes mellitus with ketoacidosis without coma Status: Acute (3) End stage renal disease on dialysis: Code(s): N18.6 - End stage renal disease; Z99.2 - Dependence on renal dialysis Status: Chronic (4) Type 1 diabetes mellitus: Code(s): E10.9 - Type 1 diabetes mellitus without complications Status: Acute (5) End stage renal disease: Code(s): N18.6 - End stage renal disease Status: Chronic (6) Lower extremity edema: Code(s): R60.0 - Localized edema Status: Acute (7) Pulmonary edema: Code(s): J81.1 - Chronic pulmonary edema Status: Acute (8) Diabetes mellitus: Code(s): E11.9 - Type 2 diabetes mellitus without complications Status: Acute (9) Volume overload: Code(s): E87.70 - Fluid overload, unspecified Status: Acute (10) Elevated INR: Code(s): R79.1 - Abnormal coagulation profile Status: Acute (11) Chronic respiratory failure with hypoxia: Code(s): J96.11 - Chronic respiratory failure with hypoxia Status: Chronic (12) Hypertension: Qualifiers: Hypertension type: essential hypertension Qualified Code(s): I10 - Essential (primary) hypertension Code(s): I10 - Essential (primary) hypertension Status: Chronic (13) Congestive heart failure: Qualifiers: Heart failure type: unspecified Heart failure chronicity: unspecified Qualified Code(s): I50.9 - Heart failure, unspecified Code(s): I50.9 - Heart failure, unspecified Status: Chronic (14) COPD (chronic obstructive pulmonary disease): Qualifiers: COPD type: unspecified COPD Qualified Code(s): J44.9 - Chronic obstructive pulmonary disease, unspecified Code(s): J44.9 - Chronic obstructive pulmonary disease, unspecified Status: Chronic (15) DM2 (diabetes mellitus, type 2): Qualifiers: Diabetes mellitus correction insulin use: with correction use Diabetes mellitus complication status: without complication Qualified Code(s): E11.9 - Type 2 diabetes mellitus without complications; Z79.4 - senior care (current) use of insulin Code(s): E11.9 - Type 2 diabetes mellitus without complications Status: Chronic (16) Atrial flutter: Qualifiers: Atrial flutter type: unspecified Qualified Code(s): I48.92 - Unspecified atrial flutter Code(s): I48.92 - Unspecified atrial flutter Status: Chronic (17) Hyperlipidemia: Qualifiers: Hyperlipidemia type: unspecified Qualified Code(s): E78.5 - Hyperlipidemia, unspecified Code(s): E78.5 - Hyperlipidemia, unspecified Status: Chronic DS: Summary Hospital Course Reason for hospitalization: GI bleed Hospital Course: 09/25/21 Gastroenterology has been consult and do appreciate further recommendations. Patient will be kept NPO at this time until seen by GI. Will have a stat CBC performed and then have hemoglobin and hematocrit drawn every 6 hours to monitor closely. Patient's INR outside facility was 11.7. Patient did receive Kcentra
== END 2021-09-29 17:57 | disposition home health service (06) | DRG 377 ==
LOC: ANHICU 09-26 03:13 → ANHIMU 09-26 15:45
PROVIDERS: Family Medicine; Internal Medicine; Internal Medicine Gastroenterology; Internal Medicine Nephrology; Nurse Practitioner Adult Health; Admitting Provider Internal Medicine; PCP Nurse Practitioner Family; Visit Provider Hospitalist
PROC: 0DJ08ZZ Inspection of Upper Intestinal Tract, Via Natural or Artificial Opening Endoscopic (ICD-10-PCS; CPT 43235; principal; 2021-09-27 14:30)
DX: K92.2 Gastrointestinal hemorrhage, unspecified (principal); E11.10 Type 2 diabetes mellitus with ketoacidosis without coma; N18.6 End stage renal disease; I48.92 Unspecified atrial flutter; J96.11 Chronic respiratory failure with hypoxia; I13.2 Hypertensive heart and chronic kidney disease with heart failure and with stage 5 chronic kidney disease, or end stage renal disease; J81.1 Chronic pulmonary edema; D62 Acute posthemorrhagic anemia; D68.32 Hemorrhagic disorder due to extrinsic circulating anticoagulants; I50.9 Heart failure, unspecified; Z99.81 Dependence on supplemental oxygen; Z99.2 Dependence on renal dialysis; E78.5 Hyperlipidemia, unspecified; Z86.718 Personal history of other venous thrombosis and embolism; Z86.19 Personal history of other infectious and parasitic diseases; F32.9 Major depressive disorder, single episode, unspecified; J44.9 Chronic obstructive pulmonary disease, unspecified; I25.10 Atherosclerotic heart disease of native coronary artery without angina pectoris; F17.210 Nicotine dependence, cigarettes, uncomplicated; Z79.899 Other long term (current) drug therapy; Z79.82 Long term (current) use of aspirin; Z95.1 Presence of aortocoronary bypass graft; E11.22 Type 2 diabetes mellitus with diabetic chronic kidney disease; E87.70 Fluid overload, unspecified; T45.7X5A Adverse effect of anticoagulant antagonists, vitamin K and other coagulants, initial encounter; K29.70 Gastritis, unspecified, without bleeding
CPT/HCPCS: 36415; 71045; 80048; 80053; 80069; 81001; 82010; 82533; 82728; 82803; 82948; 83036; 83540; 83550; 83605; 83735; 84100; 84145; 84443; 85014; 85018; 85025; 85027; 85610; 86706; 87086; 87088; 87340; 88305; 93005; 93306; 93970; 94640; 96365; 96366; 96375; 96376; 97161; 97165; A9270; C1751; C8929; C9113; G0257; G0378; G0379; J0696; J1265; J1756; J1815; J2405; J2704; J7030; J7040; J7120; P9045; P9047; Q5105; Q9957